=== PATIENT | female | born 1985 | race Caucasian/White ===

== ENCOUNTER 2017-08-03 17:53 | Emergency (ER) | payer BC ==
[2016-12-05 16:45] VITALS: Ht 160 cm; Wt 124.7 kg
[~2017-08-03] VITALS: Ht 160 cm; Wt 124.7 kg
[~2017-08-03 17:53] MED LIST: DIA5 PO; DOCU-202 PO; ESCI20TA38 PO; FAMO-67 PO; HYDR-4309 PO; IBUP600T22 PO; LACT1CAP6 PO; LEVO-85 PO; MECL25TA9 PO; METH-543 PO; ONDA4TAB PO; OXYC-854 PO; OXYC-865 PO; PER PO; PROM-110 PO; SIME250C PO; SUVO20TA; TRAZ-156 PO; TRIA10.8
--- NOTE | 2017-08-03 18:05 | ER Report ---
History and Physical Time Seen By MD: 18:05 Hx. of Stated Complaint: SORE THROAT, N/V/D FOR 2 DAYS. HPI/ROS CHIEF COMPLAINT: Nausea, vomiting, diarrhea HISTORY OF PRESENT ILLNESS: Is a 32-year-old female who presents to the emergency department for nausea, vomiting, diarrhea. The patient was seen at urgent care just prior to arrival had a negative influenza. They were concerned with her sore throat, abdominal pain and thought she would benefit from further evaluation in the emergency department. Patient states over the last couple days she's had some aches, chills, sore throat, nausea, vomiting, diarrhea and now having some epigastric pain she feels is related to the vomiting. She states her was diagnosed with influenza this week. Patient denies dysuria, no chest pain, shortness of breath or confusion. REVIEW OF SYSTEMS: Constitutional: As above. Eyes: No discharge. ENT: As above. Cardiovascular: No chest pain, no palpitations. Respiratory: No cough, no shortness of breath. Gastrointestinal: As above. Genitourinary: No hematuria. Musculoskeletal: No back pain. Skin: No rashes. Neurological: No headache. Allergies: Coded Allergies: metoclopramide (Verified Allergy, Severe, MENTAL STATUS CHANGES, 08/03/17) Penicillins (Verified Allergy, Unknown, 08/03/17) patient reported morphine (Verified Adverse Reaction, Mild, ITCHING, 08/03/17) Home Meds Active Scripts Dicyclomine Hcl (DICYCLOMINE HCL) 20 Mg Tablet, 5 MG PO QID Y for SPASMS, #15 TAB Prov:JUVENAL SUE [facility] 08/03/17 Promethazine Hcl (PROMETHAZINE HCL) 25 Mg Tablet, 25 MG PO Q8H Y for NAUSEA/ VOMITING, #12 TAB Prov:JUVENAL SUE [facility] 08/03/17 Ondansetron (ZOFRAN ODT) 4 Mg Tab.rapdis, 4 MG PO Q6H Y for NAUSEA/VOMITING, # 20 TAB.KAVITHA Prov:JUVENAL SUE [facility] 08/03/17 Reported Medications Escitalopram Oxalate (LEXAPRO) 20 Mg Tablet, 20 MG PO QDAY, TAB 12/20/16 Discontinued Reported Medications Triamcinolone Acetonide (Nasacort) 10.8 Ml [place] 06/04/17 Suvorexant (Belsomra) 20 Mg Tablet, QHS 06/04/17 Suvorexant (Belsomra) 20 Mg Tablet 06/04/17 Discontinued Scripts Ondansetron (ZOFRAN ODT) 4 Mg Tab.rapdis, 4 MG PO Q6H Y for NAUSEA/VOMITING, # 20 TAB.KAVITHA Prov:[facility] 06/04/17 Meclizine Hcl (MECLIZINE HCL) 25 Mg Tablet, 25 MG PO Q6H Y for DIZZINESS, #30 TAB Prov:[facility] 06/04/17 Levofloxacin 500 Mg Tab (LEVAQUIN 500 MG TAB) 500 Mg Tablet, 500 MG PO DAILY, # 10 TAB Prov:[facility] 06/04/17 Past Medical/Surgical History H and has a past medical and surgical history of umbilical hernia, left shoulder pain, back pain, wears glasses, , cholecystectomy, hernia repair. Reviewed Nurses Notes: Yes Hx Smoking: No Smoking Status: Never Smoker Hx Substance Use Disorder: No Hx Alcohol Use: No Constitutional Vital Sign - Last 24 Hours 08/03/17 08/03/17 08/03/17 08/03/17 17:57 17:59 17:59 18:23 Temp 97.6 Pulse 120 ??? Resp 18 B/P (MAP) 156/137 (143) 109/91 (97) 109/91 Pulse Ox 100 O2 Delivery Room Air 08/03/17 08/03/17 08/03/17 08/03/17 18:30 18:53 19:00 19:23 Pulse 96 B/P (MAP) 132/74 (93) 130/100 (110) Pulse Ox 96 100 08/03/17 08/03/17 08/03/17 08/03/17 19:30 19:35 20:21 20:35 Pulse 111 Resp 8 11 B/P (MAP) 104/68 (80) Pulse Ox 100 100 O2 Flow Rate 2.0 08/03/17 23:55 Pulse 85 Resp 16 B/P (MAP) 132/88 (103) Pulse Ox 95 O2 Delivery Room Air Physical Exam General Appearance: [The patient is alert, has no immediate need for airway protection and no signs of toxicity. Eyes: Pupils equal and round no pallor or injection. ENT, Mouth: Mucous membranes are dry, erythematous posterior oropharynx, tonsillar hypertrophy with exudate. Uvula midline, no edema. Anterior cervical chain lymphadenopathy. Respiratory: There are no retractions, lungs are clear to auscultation. Cardiovascular: Regular rate and rhythm, no murmurs, clicks or rubs. Gastrointestinal: Abdomen is round and soft, epigastric tenderness with palpation, no masses, bowel sounds normal. Neurological: Alert and oriented 4. Moving all activities. Following all commands. No focal neural deficits. Skin: Warm and dry, no rashes. Musculoskeletal: Neck is supple non tender. Extremities are nontender, non-swollen and have full range of motion. DIFFERENTIAL DIAGNOSIS: After history and physical exam differential diagnosis was considered for abdominal pain in a female including but not limited to ovarian cyst, pelvic inflammatory disease, ovarian torsion, urinary tract infection, and appendicitis, strep throat, influenza, gastroenteritis. Medical Decision Making Data Points Result Diagram: 08/03/17 1823 08/03/17 1823 Laboratory Hematology Test 08/03/17 17:55 08/03/17 18:23 08/03/17 20:25 Group A Streptococcus Screen Negative (NEGATIVE) Red Blood Count 5.43 M/uL (4.17-5.56) Mean Corpuscular Volume 88.1 fL (80.0-96.0) Mean Corpuscular Hemoglobin 29.7 pg (26.0-33.0) Mean Corpuscular Hemoglobin Concent 33.6 g/dL (32.0-36.0) Red Cell Distribution Width 13.1 % (11.5-14.5) Mean Platelet Volume 9.9 fL (7.2-11.1) Neutrophils (%) (Auto) 83.8 % (39.4-72.5) Lymphocytes (%) (Auto) 9.5 % (17.6-49.6) Monocytes (%) (Auto) 5.1 % (4.1-12.4) Eosinophils (%) (Auto) 1.0 % (0.4-6.7) Basophils (%) (Auto) 0.6 % (0.3-1.4) Nucleated RBC Relative Count (auto) 0.0 /100WBC Neutrophils # (Auto) 13.9 K/uL (2.0-7.4) Lymphocytes # (Auto) 1.6 K/uL (1.3-3.6) Monocytes # (Auto) 0.8 K/uL (0.3-1.0) Eosinophils # (Auto) 0.2 K/uL (0.0-0.5) Basophils # (Auto) 0.1 K/uL (0.0-0.1) Nucleated RBC Absolute Count (auto) 0.00 K/uL Peripheral Blood Smear Yes Y/N Sodium Level 137 mmol/L (137-145) Potassium Level 3.8 mmol/L (3.5-5.0) Chloride Level 104 mmol/L (98-107) Carbon Dioxide Level 20 mmol/L (22-31) Blood Urea Nitrogen 8 mg/dl (7-18) Creatinine 0.60 mg/dl (0.52-1.04) Glomerular Filtration Rate Calc > 60.0 Random Glucose 90 mg/dl (75-110) Calcium Level 9.0 mg/dl (8.4-10.2) Total Bilirubin 0.6 mg/dl (0.2-1.3) Aspartate Amino Transf (AST/SGOT) 21 U/L (0-35) Alanine Aminotransferase (ALT/SGPT) 32 U/L (0-56) Alkaline Phosphatase 91 U/L (0-126) Total Protein 7.4 gm/dl (6.3-8.2) Albumin 4.1 g/dl (3.5-5.0) Amylase Level 53 U/L (0-110) Lipase 40 U/L (23-300) Human Chorionic Gonadotropin, Qual Negative (NEGATIVE) Urine Color Yellow Urine Clarity Clear Urine pH 6.0 pH (4.8-9.5) Urine Specific [place] 1.024 Urine Protein Negative mg/dL (NEGATIVE) Urine Glucose (UA) Negative mg/dL (NEGATIVE) Urine Ketones 20 mg/dL (NEGATIVE) Urine Blood Negative (NEGATIVE) Urine Nitrite Negative (NEGATIVE) Urine Bilirubin Negative (NEGATIVE) Urine Urobilinogen Negative mg/dL (0.2-1.9) Urine Leukocyte Esterase Negative (NEGATIVE) Urine RBC None /HPF (0-2/HPF) Urine WBC <1 /HPF (0-5/HPF) Urine Squamous Epithelial Cells Many /LPF (</=FEW) Urine Bacteria Negative /HPF (NONE-FEW) Urine Mucus Few /HPF (NONE-FEW) Chemistry Test 08/03/17 17:55 08/03/17 18:23 08/03/17 20:25 Group A Streptococcus Screen Negative (NEGATIVE) White Blood Count 16.6 k/uL (4.5-11.0) Red Blood Count 5.43 M/uL (4.17-5.56) Hemoglobin 16.1 g/dL (12.0-16.0) Hematocrit 47.8 % (34.0-47.0) Mean Corpuscular Volume 88.1 fL (80.0-96.0) Mean Corpuscular Hemoglobin 29.7 pg (26.0-33.0) Mean Corpuscular Hemoglobin Concent 33.6 g/dL (32.0-36.0) Red Cell Distribution Width 13.1 % (11.5-14.5) Platelet Count 309 K/uL (150-450) Mean Platelet Volume 9.9 fL (7.2-11.1) Neutrophils (%) (Auto) 83.8 % (39.4-72.5) Lymphocytes (%) (Auto) 9.5 % (17.6-49.6) Monocytes (%) (Auto) 5.1 % (4.1-12.4) Eosinophils (%) (Auto) 1.0 % (0.4-6.7) Basophils (%) (Auto) 0.6 % (0.3-1.4) Nucleated RBC Relative Count (auto) 0.0 /100WBC Neutrophils # (Auto) 13.9 K/uL (2.0-7.4) Lymphocytes # (Auto) 1.6 K/uL (1.3-3.6) Monocytes # (Auto) 0.8 K/uL (0.3-1.0) Eosinophils # (Auto) 0.2 K/uL (0.0-0.5) Basophils # (Auto) 0.1 K/uL (0.0-0.1) Nucleated RBC Absolute Count (auto) 0.00 K/uL Peripheral Blood Smear Yes Y/N Glomerular Filtration Rate Calc > 60.0 Calcium Level 9.0 mg/dl (8.4-10.2) Total Bilirubin 0.6 mg/dl (0.2-1.3) Aspartate Amino Transf (AST/SGOT) 21 U/L (0-35) Alanine Aminotransferase (ALT/SGPT) 32 U/L (0-56) Alkaline Phosphatase 91 U/L (0-126) Total Protein 7.4 gm/dl (6.3-8.2) Albumin 4.1 g/dl (3.5-5.0) Amylase Level 53 U/L (0-110) Lipase 40 U/L (23-300) Human Chorionic Gonadotropin, Qual Negative (NEGATIVE) Urine Color Yellow Urine Clarity Clear Urine pH 6.0 pH (4.8-9.5) Urine Specific [place] 1.024 Urine Protein Negative mg/dL (NEGATIVE) Urine Glucose (UA) Negative mg/dL (NEGATIVE) Urine Ketones 20 mg/dL (NEGATIVE) Urine Blood Negative (NEGATIVE) Urine Nitrite Negative (NEGATIVE) Urine Bilirubin Negative (NEGATIVE) Urine Urobilinogen Negative mg/dL (0.2-1.9) Urine Leukocyte Esterase Negative (NEGATIVE) Urine RBC None /HPF (0-2/HPF) Urine WBC <1 /HPF (0-5/HPF) Urine Squamous Epithelial Cells Many /LPF (</=FEW) Urine Bacteria Negative /HPF (NONE-FEW) Urine Mucus Few /HPF (NONE-FEW) Urinalysis Test 08/03/17 20:25 Urine Color Yellow Urine Clarity Clear Urine pH 6.0 pH (4.8-9.5) Urine Specific [place] 1.024 Urine Protein Negative mg/dL (NEGATIVE) Urine Glucose (UA) Negative mg/dL (NEGATIVE) Urine Ketones 20 mg/dL (NEGATIVE) Urine Blood Negative (NEGATIVE) Urine Nitrite Negative (NEGATIVE) Urine Bilirubin Negative (NEGATIVE) Urine Urobilinogen Negative mg/dL (0.2-1.9) Urine Leukocyte Esterase Negative (NEGATIVE) Urine RBC None /HPF (0-2/HPF) Urine WBC <1 /HPF (0-5/HPF) Urine Squamous Epithelial Cells Many /LPF (</=FEW) Urine Bacteria Negative /HPF (NONE-FEW) Urine Mucus Few /HPF (NONE-FEW) Microbiology Microbiology Date/Time Source Procedure Growth Status 08/03/17 17:55 Throat Group A Streptococcus Screen (RAUL) - Preliminary NORMAL RESPIRATORY NORMA PRESENT, CUL... Resulted EKG/Imaging Imaging EXAMINATION: CT abdomen and pelvis with contrast COMPARISON: 12/04/2016 HISTORY: Severe abdominal pain. Prior hernia repair. PROCEDURE: Multiplanar contrast enhanced CT of the abdomen and pelvis with 75 mL intravenous Isovue 370. One of the following dose optimization techniques was utilized in the performance of this exam: Automated exposure control; adjustment of the mA and/or kV according to the patient's size; or use of an iterative reconstruction technique. Specific details can be referenced in the facility's radiology CT exam operational policy. FINDINGS: Visualized thorax: Negative. Liver: Negative. Gallbladder and biliary system: Cholecystectomy. No bile duct dilation. Spleen: Spleen size is normal. Pancreas: Negative. Adrenal glands: Negative. Kidneys and bladder: No renal mass or evidence of an obstructive uropathy. Urinary bladder is unremarkable. Vessels: Within normal limits. Bowel and mesentery: Stomach is within normal limits. No small bowel obstruction. Appendix is unremarkable. Minimal stool within the colon. No bowel or mesenteric inflammation. Pelvic organs: Intrauterine device is normally positioned. No adnexal mass. Lymph nodes: No adenopathy. Free air/free fluid: None. Abdominal wall and osseous structures: Ventral hernia repair with no evidence of recurrent hernia. L5 chronic bilateral pars defects. No spondylolisthesis. No acute osseous abnormality. IMPRESSION: 1. Ventral hernia repair with no evidence of recurrent hernia. 2. No findings of acute disease in the abdomen or pelvis. Report Dictated By: Christopher Desir MD at 08/03/2017 8:25 PM Report E-Signed By: Christopher Desir MD at 08/03/2017 8:34 PM [id number] ED Course/Re-evaluation Clinical Indication for ER IV: Hydration, IV Access ED Course The patient was admitted to room. A history of physical were obtained. Differential diagnoses were considered. IV was started. A CBC, CMP, lipase, amylase and UA were obtained. Lab studies showing the WBCs 16.6, with a left shift, negative strep screen. UA contaminated. 1 L lactated Ringer's bolus given 2. 4 mg IV Zofran 2, 25 g IV fentanyl, 12.5 mg Phenergan 2. Patient was having some increased abdominal pain at which time we elected to proceed with an abdomen and pelvis CT. No acute findings in the abdomen and pelvis CT, no disruption in the hernia repair. I did review the results with the patient's and her . The patient was prepped and ready for discharge by limits that the patient again she was sitting up at the bedside vomiting. I asked patient if she like to go home and try the nausea medications and try to sleep she said that she had rather stay here for little while with another IV and some nausea medicine. Subsequently another IV was started a liter of normal saline was given and 25 mg IV Benadryl. I did review his case with Dr. Dalal who will be taking over the patient's care. Decision to Disposition Date: Aug 04, 2017 Decision to Disposition Time: 00:01 Turned Over The care of the patient was turned over to Dr. Dalal. NADJA Arreola I authorize my typed signature that I authenticated this report. Depart Departure Latest Vital Signs Vital Signs Date Time Temp Pulse Resp B/P (MAP) Pulse Ox O2 Delivery O2 Flow Rate FiO2 08/03/17 23:55 85 16 132/88 (103) 95 Room Air 08/03/17 20:21 2.0 08/03/17 17:59 97.6 Impression: Primary Impression: Gastroenteritis Condition: Improved Disposition: HOME OR SELF-CARE Referrals: DERICK GORE DO (PCP) New Scripts Dicyclomine Hcl (DICYCLOMINE HCL) 20 Mg Tablet 5 MG PO QID Y for SPASMS, #15 TAB Prov: JUVENAL SUE [facility] 08/03/17 Promethazine Hcl (PROMETHAZINE HCL) 25 Mg Tablet 25 MG PO Q8H Y for NAUSEA/VOMITING, #12 TAB Prov: JUVENAL SUE [facility] 08/03/17 Ondansetron (ZOFRAN ODT) 4 Mg Tab.rapdis 4 MG PO Q6H Y for NAUSEA/VOMITING, #20 TAB.KAVITHA Prov: JUVENAL SUE [facility] 08/03/17 Patient Instructions: Abdominal Pain (ED), Gastroenteritis (ED) Additional Instructions: Try a clear liquid diet for the next 12-24 hours. Be sure to drink plenty of fluids. Get plenty of rest. Take his Zofran or Phenergan as needed for nausea and vomiting. You can try the bentyl as needed for abominal cramping. If no improvement in 5-7 days follow up with your primary care provider. May return to the ED for worsening symptoms. JUVENAL SUE [facility] Aug 03, 2017 18:05
[2017-08-03] MEDS ORDERED: LR(*) 1000 ML BAG 1,000 ML IV ONE ×2 (18:14→18:50)
[2017-08-03] MEDS ORDERED: ONDANSETRON 4 MG/2 ML VIAL IVP ONE ×2 (18:15→19:00)
[2017-08-03 18:35] LABS: PLATELET COUNT, AUTOMATED 309 K/uL (150-450)
[2017-08-03] MEDS ORDERED: PROMETHAZINE 25 MG/ML 1 ML AMP IVP ONE ×3 (19:20→22:25)
[2017-08-03] MEDS ORDERED: fentaNYL CITR 100 MCG/2 ML AMP IVP ONE (19:35)
--- NOTE | 2017-08-03 20:38 | RADIOLOGY IMAGING REPORT ---
FACILITY: [facility] [place] PATIENT NAME: Olya Hannah : 1985 MR: [id number] V: [id number] EXAM DATE: ORDERING PHYSICIAN: JUVENAL SUE TECHNOLOGIST: Location: [facility] [place] Patient: Olya Hannah : 1985 Visit/Account:[id number] Date of Sevice: 08/03/2017 EXAMINATION: CT abdomen and pelvis with contrast COMPARISON: 12/04/2016 HISTORY: Severe abdominal pain. Prior hernia repair. PROCEDURE: Multiplanar contrast enhanced CT of the abdomen and pelvis with 75 mL intravenous Isovue 3 70. One of the following dose optimization techniques was utilized in the performance of this exam: A utomated exposure control; adjustment of the mA and/or kV according to the patient's size; or use of an iterative reconstruction technique. Specific details can be referenced in the facility's radiolo gy CT exam operational policy. FINDINGS: Visualized thorax: Negative. Liver: Negative. Gallbladder and biliary system: Cholecystectomy. No bile duct dilation. Spleen: Spleen size is normal. Pancreas: Negative. Adrenal glands: Negative. Kidneys and bladder: No renal mass or evidence of an obstructive uropathy. Urinary bladder is unrema rkable. Vessels: Within normal limits. Bowel and mesentery: Stomach is within normal limits. No small bowel obstruction. Appendix is unrem arkable. Minimal stool within the colon. No bowel or mesenteric inflammation. Pelvic organs: Intrauterine device is normally positioned. No adnexal mass. Lymph nodes: No adenopathy. Free air/free fluid: None. Abdominal wall and osseous structures: Ventral hernia repair with no evidence of recurrent hernia. L5 chronic bilateral pars defects. No spondylolisthesis. No acute osseous abnormality. IMPRESSION: 1. Ventral hernia repair with no evidence of recurrent hernia. 2. No findings of acute disease in the abdomen or pelvis. Report Dictated By: Christopher Desir MD at 08/03/2017 8:25 PM Report E-Signed By: Christopher Desir MD at 08/03/2017 8:34 PM [id number]
[2017-08-03] MEDS ORDERED: PROM-110 PO (20:48)
[2017-08-03] MEDS ORDERED: ONDA4TAB PO (20:48)
[2017-08-03] MEDS ORDERED: DICY20TA70 PO (20:55)
[2017-08-03] MEDS ORDERED: ONDANSETRON 4 MG ODT TH SL ONE (21:00)
[2017-08-03] MEDS ORDERED: DICYCLOMINE HCL 10 MG CAP PO ONE (21:00)
[2017-08-03] MEDS ORDERED: PROMETHAZINE HCL 25 MG TAB TH 2 TAB/BOTTLE PO ONE (21:00)
[2017-08-03] MEDS ORDERED: diphenhydrAMINE 50 MG/ML VIAL IVP ONE (21:10)
[2017-08-03] MEDS ORDERED: NS(*) 0.9% 1000 ML BAG 1,000 ML IV ONE (21:10)
[2017-08-03 23:55] VITALS: BP 132/88
[2017-08-07] MEDS ORDERED: IPRA15SP7 NS (08:24)
== END 2017-08-04 00:04 | disposition home or self-care (01) ==
LOC: ER 18:11
DX: K52.9 Noninfective gastroenteritis and colitis, unspecified (principal)
CPT/HCPCS: 74177; 81001; 82150; 83690; 84703; 85025; 87081; 87880; 96361; 96374; 96375; 96376; 99284; J1200; J2405; J2550; J3010; J7030; J7050; J7120; Q9967; 82040; 82247; 82310; 82374; 82435; 82565; 82947; 84075; 84132; 84155; 84295; 84450; 84460; 84520

== ENCOUNTER 2017-11-19 14:06 | Emergency (ER) | payer BC ==
[2016-12-05 16:45] VITALS: Wt 124.7 kg
[~2017-11-19 14:06] MED LIST changes: +DICY20TA70 PO; +IPRA15SP7 NS
--- NOTE | 2017-11-19 14:18 | ER Report ---
History and Physical Time Seen By MD: 14:17 Hx. of Stated Complaint: Diarrhea started yesterday. Vomitting today. Pain in lower epigastric area HPI/ROS CHIEF COMPLAINT: abdominal pain and vomiting HISTORY OF PRESENT ILLNESS: This is a 32 year old female. She had abdominal pain starting yesterday. Associated with vomiting and some diarrhea. No fevers or chills. Not able to keep food or liquids down. Pain worsens with movement. Normal urination. No back pain or extremity pain. REVIEW OF SYSTEMS: Constitutional: No fever or chills. Eyes: No vision changes. ENT: No sore throat. No congestion. Cardiovascular: No chest pain. Respiratory: No shortness of breath. Gastrointestinal: As above. Genitourinary: As above. Musculoskeletal: No extremity pain. Skin: No rashes. Neurological: No numbness. No weakness. Allergies: Coded Allergies: metoclopramide (Verified Allergy, Severe, MENTAL STATUS CHANGES, 11/19/17) Penicillins (Verified Allergy, Unknown, 11/19/17) patient reported morphine (Verified Adverse Reaction, Mild, ITCHING, 11/19/17) Home Meds Active Scripts Hydrocodone Bit/Acetaminophen (HYDROCODON-ACETAMINOPHEN 5-325) 1 Each Tablet, 1 EACH PO Q4H Y for PAIN, #12 TAB 0 Refills Prov:SERGIO MILLER MD 11/19/17 Promethazine Hcl (PROMETHAZINE HCL) 25 Mg Tablet, 25 MG PO Q8H Y for NAUSEA/ VOMITING, #30 TAB 0 Refills Prov:SERGIO MILLER MD 11/19/17 Metronidazole (METRONIDAZOLE) 500 Mg Tablet, 500 MG PO TID, #30 TAB 0 Refills Prov:SERGIO MILLER MD 11/19/17 Ciprofloxacin Hcl (CIPROFLOXACIN HCL) 500 Mg Tablet, 500 MG PO Q12H, #20 TAB 0 Refills Prov:SERGIO MILLER MD 11/19/17 Ipratropium [place] 0.06% Ns (IPRATROPIUM BROMIDE 0.06% NS) 15 Ml [place], 2 SPRAY NS BID, #1 BOT 11 Refills Prov:PAVEL CHATTERJEE JR, MD 08/24/17 Reported Medications Escitalopram Oxalate (LEXAPRO) 20 Mg Tablet, 20 MG PO QDAY, TAB 12/20/16 Discontinued Scripts Dicyclomine Hcl (DICYCLOMINE HCL) 20 Mg Tablet, 5 MG PO QID Y for SPASMS, #15 TAB Prov:JUVENAL SUE [employer] ADMINISTRATOR-BC 08/03/17 Reviewed Nurses Notes: Yes Hx Smoking: No Smoking Status: Never Smoker Hx Substance Use Disorder: No Hx Alcohol Use: No Constitutional Vital Sign - Last 24 Hours 11/19/17 11/19/17 11/19/17 11/19/17 14:10 14:15 14:30 14:45 Temp 98.8 Pulse 135 133 126 122 Resp 16 B/P (MAP) 136/106 125/114 (118) Pulse Ox 97 98 94 92 O2 Delivery Room Air 11/19/17 11/19/17 11/19/17 11/19/17 15:15 15:30 15:32 15:45 Pulse 110 113 128 B/P (MAP) 123/80 (94) Pulse Ox 96 97 96 11/19/17 11/19/17 11/19/17 11/19/17 16:00 16:15 16:30 16:45 Pulse 117 112 112 106 B/P (MAP) 131/87 (102) 111/101 (104) Pulse Ox 96 97 98 98 11/19/17 11/19/17 11/19/17 11/19/17 17:00 17:15 17:30 17:45 Pulse 109 104 108 103 B/P (MAP) 131/79 (96) 112/76 (88) Pulse Ox 98 97 98 98 11/19/17 11/19/17 11/19/17 11/19/17 18:00 18:15 18:30 19:55 Pulse 104 104 112 B/P (MAP) 119/74 (89) 121/75 (90) 110/86 (94) Pulse Ox 97 97 98 11/19/17 11/19/17 11/19/17 11/19/17 20:00 20:30 20:45 21:00 Pulse 120 105 102 104 B/P (MAP) 114/100 (105) 133/85 (101) 112/79 (90) Pulse Ox 96 98 98 97 11/19/17 21:15 Pulse 99 Pulse Ox 97 Physical Exam General Appearance: The patient is alert. Acute distress due to pain. Eyes: Pupils are equal, round. No pallor, injection or icterus. ENT: Mucous membranes are moist. Normal oral mucosa. Posterior oropharynx is normal. Neck: Supple and non tender. Respiratory: Breathing easily and unlabored. Lungs are clear to auscultation. Cardiovascular: Regular rate and rhythm. No murmurs, gallops or rubs. Normal capillary refill. Gastrointestinal: abdomen is soft, but very tender in epigastric and right abdomen. Nondistended. Guarding, but no rebound. Normal active bowel sounds. No costovertebral angle tenderness with percussion. Neurological: Alert and oriented x3. No focal neurologic deficits. Skin: Warm and dry. DIFFERENTIAL DIAGNOSIS: After history and physical exam, differential diagnosis was considered for abdominal pain including but not limited to appendicitis, cholecystitis, gastritis and urinary tract infection. Medical Decision Making Data Points Result Diagram: 11/19/17 1420 11/19/17 1420 Laboratory Hematology Test 11/19/17 14:20 11/19/17 20:15 Red Blood Count 5.47 M/uL (4.17-5.56) Mean Corpuscular Volume 88.7 fL (80.0-96.0) Mean Corpuscular Hemoglobin 30.0 pg (26.0-33.0) Mean Corpuscular Hemoglobin Concent 33.8 g/dL (32.0-36.0) Red Cell Distribution Width 13.2 % (11.5-14.5) Mean Platelet Volume 9.3 fL (7.2-11.1) Neutrophils (%) (Auto) 86.9 % (39.4-72.5) Lymphocytes (%) (Auto) 7.2 % (17.6-49.6) Monocytes (%) (Auto) 4.4 % (4.1-12.4) Eosinophils (%) (Auto) 1.0 % (0.4-6.7) Basophils (%) (Auto) 0.5 % (0.3-1.4) Nucleated RBC Relative Count (auto) 0.2 /100WBC Neutrophils # (Auto) 14.1 K/uL (2.0-7.4) Lymphocytes # (Auto) 1.2 K/uL (1.3-3.6) Monocytes # (Auto) 0.7 K/uL (0.3-1.0) Eosinophils # (Auto) 0.2 K/uL (0.0-0.5) Basophils # (Auto) 0.1 K/uL (0.0-0.1) Nucleated RBC Absolute Count (auto) 0.03 K/uL Sodium Level 141 mmol/L (137-145) Potassium Level 4.0 mmol/L (3.5-5.0) Chloride Level 102 mmol/L (98-107) Carbon Dioxide Level 21 mmol/L (22-31) Blood Urea Nitrogen 7 mg/dl (7-18) Creatinine 0.70 mg/dl (0.52-1.04) Glomerular Filtration Rate Calc > 60.0 Random Glucose 100 mg/dl (75-110) Lactate 2.0 mmol/L (0.7-2.1) Calcium Level 9.7 mg/dl (8.4-10.2) Total Bilirubin 0.6 mg/dl (0.2-1.3) Aspartate Amino Transf (AST/SGOT) 22 U/L (0-35) Alanine Aminotransferase (ALT/SGPT) 26 U/L (0-56) Alkaline Phosphatase 117 U/L (0-126) C-Reactive Protein 1.9 mg/dl (<1.0) Total Protein 7.9 gm/dl (6.3-8.2) Albumin 4.4 g/dl (3.5-5.0) Amylase Level 61 U/L (0-110) Lipase 43 U/L (23-300) Human Chorionic Gonadotropin, Qual Negative (NEGATIVE) Urine Color Yellow Urine Clarity Clear Urine pH 6.0 pH (4.8-9.5) Urine Specific [place] 1.047 Urine Protein Negative mg/dL (NEGATIVE) Urine Glucose (UA) Negative mg/dL (NEGATIVE) Urine Ketones Negative mg/dL (NEGATIVE) Urine Blood Negative (NEGATIVE) Urine Nitrite Negative (NEGATIVE) Urine Bilirubin Negative (NEGATIVE) Urine Urobilinogen Negative mg/dL (0.2-1.9) Urine Leukocyte Esterase Negative (NEGATIVE) Urine RBC None /HPF (0-2/HPF) Urine WBC <1 /HPF (0-5/HPF) Urine Squamous Epithelial Cells Few /LPF (</=FEW) Urine Bacteria Negative /HPF (NONE-FEW) Urine Hyaline Casts Few /LPF (NONE-FEW) Urine Mucus None /HPF (NONE-FEW) Chemistry Test 11/19/17 14:20 11/19/17 20:15 White Blood Count 16.2 k/uL (4.5-11.0) Red Blood Count 5.47 M/uL (4.17-5.56) Hemoglobin 16.4 g/dL (12.0-16.0) Hematocrit 48.5 % (34.0-47.0) Mean Corpuscular Volume 88.7 fL (80.0-96.0) Mean Corpuscular Hemoglobin 30.0 pg (26.0-33.0) Mean Corpuscular Hemoglobin Concent 33.8 g/dL (32.0-36.0) Red Cell Distribution Width 13.2 % (11.5-14.5) Platelet Count 380 K/uL (150-450) Mean Platelet Volume 9.3 fL (7.2-11.1) Neutrophils (%) (Auto) 86.9 % (39.4-72.5) Lymphocytes (%) (Auto) 7.2 % (17.6-49.6) Monocytes (%) (Auto) 4.4 % (4.1-12.4) Eosinophils (%) (Auto) 1.0 % (0.4-6.7) Basophils (%) (Auto) 0.5 % (0.3-1.4) Nucleated RBC Relative Count (auto) 0.2 /100WBC Neutrophils # (Auto) 14.1 K/uL (2.0-7.4) Lymphocytes # (Auto) 1.2 K/uL (1.3-3.6) Monocytes # (Auto) 0.7 K/uL (0.3-1.0) Eosinophils # (Auto) 0.2 K/uL (0.0-0.5) Basophils # (Auto) 0.1 K/uL (0.0-0.1) Nucleated RBC Absolute Count (auto) 0.03 K/uL Glomerular Filtration Rate Calc > 60.0 Lactate 2.0 mmol/L (0.7-2.1) Calcium Level 9.7 mg/dl (8.4-10.2) Total Bilirubin 0.6 mg/dl (0.2-1.3) Aspartate Amino Transf (AST/SGOT) 22 U/L (0-35) Alanine Aminotransferase (ALT/SGPT) 26 U/L (0-56) Alkaline Phosphatase 117 U/L (0-126) C-Reactive Protein 1.9 mg/dl (<1.0) Total Protein 7.9 gm/dl (6.3-8.2) Albumin 4.4 g/dl (3.5-5.0) Amylase Level 61 U/L (0-110) Lipase 43 U/L (23-300) Human Chorionic Gonadotropin, Qual Negative (NEGATIVE) Urine Color Yellow Urine Clarity Clear Urine pH 6.0 pH (4.8-9.5) Urine Specific [place] 1.047 Urine Protein Negative mg/dL (NEGATIVE) Urine Glucose (UA) Negative mg/dL (NEGATIVE) Urine Ketones Negative mg/dL (NEGATIVE) Urine Blood Negative (NEGATIVE) Urine Nitrite Negative (NEGATIVE) Urine Bilirubin Negative (NEGATIVE) Urine Urobilinogen Negative mg/dL (0.2-1.9) Urine Leukocyte Esterase Negative (NEGATIVE) Urine RBC None /HPF (0-2/HPF) Urine WBC <1 /HPF (0-5/HPF) Urine Squamous Epithelial Cells Few /LPF (</=FEW) Urine Bacteria Negative /HPF (NONE-FEW) Urine Hyaline Casts Few /LPF (NONE-FEW) Urine Mucus None /HPF (NONE-FEW) Urinalysis Test 11/19/17 20:15 Urine Color Yellow Urine Clarity Clear Urine pH 6.0 pH (4.8-9.5) Urine Specific [place] 1.047 Urine Protein Negative mg/dL (NEGATIVE) Urine Glucose (UA) Negative mg/dL (NEGATIVE) Urine Ketones Negative mg/dL (NEGATIVE) Urine Blood Negative (NEGATIVE) Urine Nitrite Negative (NEGATIVE) Urine Bilirubin Negative (NEGATIVE) Urine Urobilinogen Negative mg/dL (0.2-1.9) Urine Leukocyte Esterase Negative (NEGATIVE) Urine RBC None /HPF (0-2/HPF) Urine WBC <1 /HPF (0-5/HPF) Urine Squamous Epithelial Cells Few /LPF (</=FEW) Urine Bacteria Negative /HPF (NONE-FEW) Urine Hyaline Casts Few /LPF (NONE-FEW) Urine Mucus None /HPF (NONE-FEW) EKG/Imaging Imaging ABDOMEN/PELVIS WITH CONTRAST HISTORY: epigastric pain, vomiting, diarrhea TECHNIQUE: Following administration of IV contrast contiguous axial images acquired through the abdomen/pelvis. Coronal and sagittal reformatting also performed. Dose Lowering Technique One of the following dose optimization techniques was utilized in the performance of this exam: Automated exposure control; adjustment of the mA and/ or kV according to the patient's size; or use of an iterative reconstruction technique. Specific details can be referenced in the facility's radiology CT exam operational policy. CONTRAST: 75 mL Isovue-370 COMPARISON: August 03, 2017 FINDINGS: Visualized lung bases: Negative. Hepatobiliary: Postsurgical changes from a cholecystectomy Spleen: Negative. Adrenals: Negative. Pancreas: Negative. Kidneys ureters or bladder: Tiny cortical hypodensity upper pole the right kidney likely representing a cyst although is too small to characterize by CT although remain stable Genitalia: IUD appears to been good position within the uterus 2.9 cm right ovarian hypodensity likely a cyst GI: There is thickening of the wall of the right-sided the colon suggesting colitis. The appendix is not appear inflamed although there appears to been appendicolith at its origin Vessels/spaces/nodes: Negative. 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 IMPRESSION: There is thickening of the wall of the right-sided the colon suggesting colitis. There is an appendicolith at the appendiceal origin although no surrounding inflammatory change identified Additional chronic findings as described Report Dictated By: Miroslava Rose MD at 11/19/2017 3:30 PM ED Course/Re-evaluation Clinical Indication for ER IV: Hydration, IV Access ED Course After the initial evaluation, the patient had Dilaudid and Zofran for pain and nausea. Protonix was given as well. Labs showed an elevated white blood cell count. Imaging shows thickening of right colon consistent with colitis. Started on Levaquin 750mg IV and Metronidazole 500mg IV. Dilaudid caused itching and patient had Benadryl to help with this. Home with Levaquin, Metronidazole, Lortab and Phenergan. Decision to Disposition Date: Nov 19, 2017 Decision to Disposition Time: 17:04 Depart Departure Latest Vital Signs Vital Signs Date Time Temp Pulse Resp B/P (MAP) Pulse Ox O2 Delivery O2 Flow Rate FiO2 11/19/17 21:15 99 97 11/19/17 21:00 112/79 (90) 11/19/17 14:10 98.8 16 Room Air Impression: Primary Impression: Colitis Condition: Improved Disposition: HOME OR SELF-CARE Referrals: DERICK GORE DO (PCP) New Scripts Hydrocodone Bit/Acetaminophen (HYDROCODON-ACETAMINOPHEN 5-325) 1 Each Tablet 1 EACH PO Q4H Y for PAIN, #12 TAB 0 Refills Prov: SERGIO MILLER MD 11/19/17 Promethazine Hcl (PROMETHAZINE HCL) 25 Mg Tablet 25 MG PO Q8H Y for NAUSEA/VOMITING, #30 TAB 0 Refills Prov: SERGIO MILLER MD 11/19/17 Metronidazole (METRONIDAZOLE) 500 Mg Tablet 500 MG PO TID, #30 TAB 0 Refills Prov: SERGIO MILLER MD 11/19/17 Ciprofloxacin Hcl (CIPROFLOXACIN HCL) 500 Mg Tablet 500 MG PO Q12H, #20 TAB 0 Refills Prov: SERGIO MILLER MD 11/19/17 Patient Instructions: Colitis (ED) Additional Instructions: You have an infection of the colon and will need to take antibiotics. Take Cipro 500mg twice a day for 10 days. Take Metronidazole 500mg three times a day for 10 days. For nausea, take Phenergan 25mg tablets, one every 8 hours as needed. For pain, take Lortab 5/325, one every 4 hours as needed for pain. Increase fluid intake. Return to the ER for severe vomiting or pain. SERGIO MILLER MD Nov 19, 2017 14:18
[2017-11-19] MEDS ORDERED: NS(*) 0.9% 1000 ML BAG 1,000 ML IV ONE (14:22)
[2017-11-19] MEDS ORDERED: PANTOPRAZOLE SOD 40 MG IV VIAL IVP ONE (14:25)
[2017-11-19] MEDS ORDERED: ONDANSETRON 4 MG/2 ML VIAL IVP ONE ×2 (14:25→19:25)
[2017-11-19] MEDS ORDERED: HYDROmorphone* 1 MG/ML 1 MG/ML ML IVP ONE ×2 (14:25→17:35)
[2017-11-19 14:36] LABS: PLATELET COUNT, AUTOMATED 380 K/uL (150-450)
[2017-11-19] MEDS ORDERED: IOPAMIDOL 76% 75 ML INFUS BTL 75 ML ONE (14:39)
[2017-11-19] MEDS ORDERED: diphenhydrAMINE 50 MG/ML VIAL IVP ONE (15:10)
--- NOTE | 2017-11-19 15:41 | RADIOLOGY IMAGING REPORT ---
FACILITY: [facility] - [place] PATIENT NAME: Olya Hannah : 1985 MR: [id number] V: [id number] EXAM DATE: ORDERING PHYSICIAN: SERGIO MILLER TECHNOLOGIST: Location: [facility] [place] Patient: Olya Hannah : 1985 Visit/Account:[id number] Date of Sevice: 11/19/2017 ABDOMEN/PELVIS WITH CONTRAST HISTORY: epigastric pain, vomiting, diarrhea TECHNIQUE: Following administration of IV contrast contiguous axial images acquired through the abdom en/pelvis. Coronal and sagittal reformatting also performed. Dose Lowering Technique One of the following dose optimization techniques was utilized in the performance of this exam: Autom ated exposure control; adjustment of the mA and/or kV according to the patient's size; or use of an i terative reconstruction technique. Specific details can be referenced in the facility's radiology C T exam operational policy. CONTRAST: 75 mL Isovue-370 COMPARISON: August 03, 2017 FINDINGS: Visualized lung bases: Negative. Hepatobiliary: Postsurgical changes from a cholecystectomy Spleen: Negative. Adrenals: Negative. Pancreas: Negative. Kidneys ureters or bladder: Tiny cortical hypodensity upper pole the right kidney likely representing a cyst although is too small to characterize by CT although remain stable Genitalia: IUD appears to been good position within the uterus 2.9 cm right ovarian hypodensity like ly a cyst GI: There is thickening of the wall of the right-sided the colon suggesting colitis. The appendix i s not appear inflamed although there appears to been appendicolith at its origin Vessels/spaces/nodes: Negative. 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 IMPRESSION: There is thickening of the wall of the right-sided the colon suggesting colitis. There is an appendicolith at the appendiceal origin although no surrounding inflammatory change ident ified Additional chronic findings as described Report Dictated By: Miroslava Rose MD at 11/19/2017 3:30 PM Report E-Signed By: Miroslava Rose MD at 11/19/2017 3:37 PM WSN:[email or web address]
[2017-11-19] MEDS ORDERED: PROMETHAZINE 25 MG/ML 1 ML AMP IVP ONE ×2 (15:55→19:25)
[2017-11-19] MEDS ORDERED: LEVOFLOXACIN/D5W 750 MG/150 ML 150 ML IVPB ONE (16:00)
[2017-11-19] MEDS ORDERED: metroNIDAZOLE* 500MG/100ML BAG 100 ML IVPB ONE (16:00)
[2017-11-19] MEDS ORDERED: CIPR-214 PO (17:08)
[2017-11-19] MEDS ORDERED: METR-160 PO (17:08)
[2017-11-19] MEDS ORDERED: LOR5/325 PO (17:08)
[2017-11-19] MEDS ORDERED: PROM-110 PO (17:08)
[2017-11-19] MEDS ORDERED: KETOROLAC 30 MG/ML VIAL IVP ONE (19:25)
[2017-11-19] MEDS ORDERED: LR(*) 1000 ML BAG 1,000 ML IV ONE (19:25)
[2017-11-19] MEDS ORDERED: methylPREDNIS SUCC 125 MG/2ML IVP ONE (19:45)
[2017-11-19 21:00] VITALS: BP 112/79
[2017-11-19] MEDS ORDERED: ACET/HYDROC 5/325MG TH ER ONLY 2 TAB/BOTTLE PO ONE ×2 (21:30)
== END 2017-11-19 21:41 | disposition home or self-care (01) ==
LOC: ER 14:07
DX: K52.9 Noninfective gastroenteritis and colitis, unspecified (principal)
CPT/HCPCS: 74177; 81001; 82150; 83605; 83690; 84703; 85025; 86140; 96361; 96365; 96366; 96367; 96375; 96376; 99285; C9113; J1170; J1200; J1885; J1956; J2405; J2550; J2930; J3490; J7030; J7120; Q9967; 82040; 82247; 82310; 82374; 82435; 82565; 82947; 84075; 84132; 84155; 84295; 84450; 84460; 84520

== ENCOUNTER 2017-11-22 17:14 | Emergency (ER) | payer BC ==
[2016-12-05 16:45] VITALS: Wt 124.7 kg
[~2017-11-22 17:14] MED LIST changes: +CIPR-214 PO; +LOR5/325 PO; +METR-160 PO
[2017-11-22] MEDS ORDERED: NS(*) 0.9% 1000 ML BAG 1,000 ML IV ONE ×2 (17:30→18:50)
[2017-11-22] MEDS ORDERED: PROMETHAZINE 25 MG/ML 1 ML AMP IVP ONE ×2 (17:30→18:50)
--- NOTE | 2017-11-22 17:41 | ER Report ---
History and Physical Time Seen By MD: 17:20 Hx. of Stated Complaint: PT REPORTS V/N/D, POSSIBLE DEHYDRATION (NAMITA FREED DO) HPI/ROS CHIEF COMPLAINT: n/v/d HISTORY OF PRESENT ILLNESS: PT started Sunday with N/v/d and abdominal pain on right side. Pt came to ED on Sunday and had blood work, cat scan and fluids. Pt was d/c to home. pt states that she never got better and today the vomiting and diarrhea was worse. diarrhea 5 times today and vomiting 3 times. Sent home with script for phenergan but states she vomited it up at home. went to see pcp Dr. Varma and had cbc and cmp in office which did not show anything acute however she appeared dehydrated so he sent her to emergency room. PT was given zofran in her pcp office but states she still feels nauseated. no fevers. REVIEW OF SYSTEMS: Constitutional: No fever, no chills. Eyes: No discharge. ENT: No sore throat. Cardiovascular: No chest pain, no palpitations. Respiratory: No cough, no shortness of breath. Gastrointestinal: + abdominal pain, +nausea, + diarrhea, + vomiting. Genitourinary: No hematuria. Musculoskeletal: No back pain. Skin: No rashes. Neurological: No headache. (NAMITA FREED DO) Allergies: Coded Allergies: metoclopramide (Verified Allergy, Severe, MENTAL STATUS CHANGES, 11/22/17) Penicillins (Verified Allergy, Unknown, 11/22/17) patient reported morphine (Verified Adverse Reaction, Mild, ITCHING, 11/22/17) Home Meds Active Scripts Omeprazole (OMEPRAZOLE) 20 Mg Capsule.dr, 1 CAP PO QDAY, #30 CAP 0 Refills Prov:SERGIO ENGLISH MD 11/22/17 Hydrocodone Bit/Acetaminophen (HYDROCODON-ACETAMINOPHEN 5-325) 1 Each Tablet, 1 EACH PO Q4H Y for PAIN, #12 TAB 0 Refills Prov:SERGIO ENGLISH MD 11/19/17 Promethazine Hcl (PROMETHAZINE HCL) 25 Mg Tablet, 25 MG PO Q8H Y for NAUSEA/ VOMITING, #30 TAB 0 Refills Prov:SERGIO ENGLISH MD 11/19/17 Metronidazole (METRONIDAZOLE) 500 Mg Tablet, 500 MG PO TID, #30 TAB 0 Refills Prov:SERGIO ENGLISH MD 11/19/17 Ciprofloxacin Hcl (CIPROFLOXACIN HCL) 500 Mg Tablet, 500 MG PO Q12H, #20 TAB 0 Refills Prov:SERGIO ENGLISH MD 11/19/17 Ipratropium [place] 0.06% Ns (IPRATROPIUM BROMIDE 0.06% NS) 15 Ml [place], 2 SPRAY NS BID, #1 BOT 11 Refills Prov:SKIP CHATTERJEE JR, MD 08/24/17 Reported Medications Escitalopram Oxalate (LEXAPRO) 20 Mg Tablet, 20 MG PO QDAY, TAB 12/20/16 Discontinued Scripts Dicyclomine Hcl (DICYCLOMINE HCL) 20 Mg Tablet, 5 MG PO QID Y for SPASMS, #15 TAB Prov:JUVENAL SUE INTERTYPE OPERATOR- 08/03/17 Past Medical/Surgical History Pmhx: colitis Pshx: , umbilical hernia repair (LAURORA,NAMITA V DO) Hx Smoking: No Smoking Status: Never Smoker Hx Substance Use Disorder: No Hx Alcohol Use: No (LAURORA,NAMITA V DO) Constitutional Vital Sign - Last 24 Hours 11/22/17 11/22/17 11/22/17 11/22/17 17:20 17:20 17:29 17:43 Temp 98.4 Pulse 97 96 Resp 16 B/P (MAP) 142/104 142/104 (117) Pulse Ox 97 94 O2 Delivery Room Air O2 Flow Rate 2.0 11/22/17 11/22/17 11/22/17 11/22/17 17:44 17:59 18:00 18:30 Pulse 88 86 B/P (MAP) 132/95 (107) 122/95 (104) Pulse Ox 96 98 11/22/17 11/22/17 19:15 19:45 Pulse 88 86 Resp 14 14 B/P (MAP) 127/94 (105) Pulse Ox 92 98 O2 Delivery Room Air Room Air (SERGIO ENGLISH MD) Physical Exam General Appearance: The patient is alert, has no immediate need for airway protection and no signs of toxicity. Eyes: Pupils equal and round no pallor or injection, EOMI ENT: no pharyngeal erythema or exudates, Mucous membranes are dry Respiratory: There are no retractions, lungs are clear to auscultation. Cardiovascular: Regular rate and rhythm. pulses are equal and symmetrical Gastrointestinal: Abdomen is soft with right sided tenderness, no masses, bowel sounds normal, no guarding, no rigidity or rebound Neurological: Cranial nerves II-XII grossly intact, no sensory or motor loss Skin: Warm and dry, no rashes. Musculoskeletal: Neck is supple non tender, no vertebral tenderness Extremities are nontender, non swollen and have full range of motion. DIFFERENTIAL DIAGNOSIS: After history and physical exam differential diagnosis was considered for clinical dehydration, worsening colitis (LAURORA,NAMITA V DO) Medical Decision Making Data Points Laboratory Hematology Test 11/22/17 19:08 Urine Color Yellow Urine Clarity Slightly-cloudy Urine pH 7.0 pH (4.8-9.5) Urine Specific [place] 1.025 Urine Protein Negative mg/dL (NEGATIVE) Urine Glucose (UA) Negative mg/dL (NEGATIVE) Urine Ketones Trace mg/dL (NEGATIVE) Urine Blood Small (NEGATIVE) Urine Nitrite Negative (NEGATIVE) Urine Bilirubin Negative (NEGATIVE) Urine Urobilinogen Negative mg/dL (0.2-1.9) Urine Leukocyte Esterase Negative (NEGATIVE) Urine RBC 4 /HPF (0-2/HPF) Urine WBC 1 /HPF (0-5/HPF) Urine Squamous Epithelial Cells Many /LPF (</=FEW) Urine Bacteria Few /HPF (NONE-FEW) Urine Mucus Few /HPF (NONE-FEW) Chemistry Test 11/22/17 19:08 Urine Color Yellow Urine Clarity Slightly-cloudy Urine pH 7.0 pH (4.8-9.5) Urine Specific [place] 1.025 Urine Protein Negative mg/dL (NEGATIVE) Urine Glucose (UA) Negative mg/dL (NEGATIVE) Urine Ketones Trace mg/dL (NEGATIVE) Urine Blood Small (NEGATIVE) Urine Nitrite Negative (NEGATIVE) Urine Bilirubin Negative (NEGATIVE) Urine Urobilinogen Negative mg/dL (0.2-1.9) Urine Leukocyte Esterase Negative (NEGATIVE) Urine RBC 4 /HPF (0-2/HPF) Urine WBC 1 /HPF (0-5/HPF) Urine Squamous Epithelial Cells Many /LPF (</=FEW) Urine Bacteria Few /HPF (NONE-FEW) Urine Mucus Few /HPF (NONE-FEW) Urinalysis Test 11/22/17 19:08 Urine Color Yellow Urine Clarity Slightly-cloudy Urine pH 7.0 pH (4.8-9.5) Urine Specific [place] 1.025 Urine Protein Negative mg/dL (NEGATIVE) Urine Glucose (UA) Negative mg/dL (NEGATIVE) Urine Ketones Trace mg/dL (NEGATIVE) Urine Blood Small (NEGATIVE) Urine Nitrite Negative (NEGATIVE) Urine Bilirubin Negative (NEGATIVE) Urine Urobilinogen Negative mg/dL (0.2-1.9) Urine Leukocyte Esterase Negative (NEGATIVE) Urine RBC 4 /HPF (0-2/HPF) Urine WBC 1 /HPF (0-5/HPF) Urine Squamous Epithelial Cells Many /LPF (</=FEW) Urine Bacteria Few /HPF (NONE-FEW) Urine Mucus Few /HPF (NONE-FEW) (SERGIO ENGLISH MD) EKG/Imaging Imaging EXAMINATION: CT abdomen and pelvis with IV contrast HISTORY: Right abdominal pain. Nausea, vomiting, diarrhea. TECHNIQUE: Axial CT images of the abdomen and pelvis were obtained with IV contrast, with coronal and sagittal 2D reconstructed images. One of the following dose optimization techniques was utilized in the performance of this exam: Automated exposure control; adjustment of the mA and/ or kV according to the patient's size; or use of an iterative reconstruction technique. Specific details can be referenced in the facility's radiology CT exam operational policy. Contrast: 75 mL of IV Isovue-370. COMPARISON: 11/19/2017. FINDINGS: Liver: Negative. Gallbladder and bile ducts: Cholecystectomy. No bile duct dilatation. Spleen: Negative. Pancreas: Negative. Adrenal glands: Negative. Kidneys: Negative. No hydronephrosis or urinary calculi. Bowel and peritoneum: The small bowel and colon are normal in caliber, without evidence of obstruction or any focal inflammatory process. Previously noted wall thickening along the right colon is no longer appreciated. Normal appendix in the right lower quadrant. Pelvic structures: There is a 3.4 cm cyst in the right adnexa, grossly stable from the prior exam. IUD in place along the central uterus. Lymph node assessment: Negative. Vessels: Negative. Musculoskeletal: No acute osseous findings. Chronic bilateral L5 spondylolysis , without spondylolisthesis. Body wall: Stable surgical changes of ventral hernia repair along the lower midline abdominal wall. Lung bases: Negative. IMPRESSION: 1. 3.4 cm right adnexal cyst. 2. No other acute intra-abdominal findings. 3. The small bowel and colon are unremarkable by CT, including the appendix. 4. IUD in place along the central uterus. 5. Cholecystectomy. Report Dictated By: Skip Chatterjee MD at 11/22/2017 6:33 PM (SERGIO ENGLISH MD) ED Course/Re-evaluation Clinical Indication for ER IV: Hydration, IV Access ED Course Labs done prior to arrival at Dr. Castillo office: wbc 11.2, hb/hct 16.1/48.5 plt 369 sodium 135 potassium 3.2 co2 21 cl 104 glu 96, ca 8.7 bun 10 cr 0.9 alt 26 ast 30 alkphos 63 tbili 0.5 alb 3.8 total protien 6.9 WIll start with fluids. 11/22/2017 5:51:47 pm S[address] out to Dr. English who is familiar with patient from 11/19. (NAMITA FREED DO) Clinical Indication for ER IV: Hydration, IV Access ED Course Discussed this patient with Dr. Freed on sign out at shift change today and assumed care. CT scan has returned and is now normal other than a right adnexal cyst. Labs from Dr. Varma's office are improved as well when compared to previous visit. She is still having pain and feels nauseated, but no vomiting and no diarrhea since she has been here. Will provide another dose of phenergan and another liter of normal saline. Percocet for pain and oral potassium replacement for her slightly low potassium of 3.2. Urinalysis with questionable changes, though no distinct sign of UTI. Culture of urine ordered. Protonix and GI cocktail given. Home with continuation of her medications prescribed on Sunday. Will add in a prescription for Omeprazole as well. Decision to Disposition Date: November 22, 2017 Decision to Disposition Time: 19:46 (SERGIO ENGLISH MD) Depart Departure Latest Vital Signs Vital Signs Date Time Temp Pulse Resp B/P (MAP) Pulse Ox O2 Delivery O2 Flow Rate FiO2 11/22/17 19:45 86 14 127/94 (105) 98 Room Air 11/22/17 17:43 2.0 11/22/17 17:20 98.4 (SERGIO ENGLISH MD) Impression: Primary Impression: Abdominal pain Condition: Improved Disposition: HOME OR SELF-CARE Referrals: DERICK VARMA DO (PCP) New Scripts Omeprazole (OMEPRAZOLE) 20 Mg Capsule. 1 CAP PO QDAY, #30 CAP 0 Refills Prov: SERGIO ENGLISH MD 11/22/17 Patient Instructions: Colitis (ED) Additional Instructions: Overall, your labs and imaging results have improved from Sunday. Your potassium is a little low and we would like to have you take a potassium supplement until you see Dr. Varma in followup. Please make an appointment with Dr. Varma for next week. Keep taking your antibiotics prescribed on Sunday. Keep taking your anti-nausea medications. You can take Tums or Maalox for heartburn. You can start the anti-acid medicine Omeprazole 20mg once a day to help with acid reflux symptoms. Problem Qualifiers Primary Impression: Abdominal pain Abdominal location: right lower quadrant Qualified Codes: R10.31 - Right lower quadrant pain NAMITA FREED DO November 22, 2017 17:41 SERGIO ENGLISH MD November 22, 2017 17:59
[2017-11-22] MEDS ORDERED: IOPAMIDOL 76% 75 ML INFUS BTL 75 ML ONE (18:15)
--- NOTE | 2017-11-22 18:41 | RADIOLOGY IMAGING REPORT ---
FACILITY: [facility] - [place] PATIENT NAME: Olya Hannah : 1985 MR: [id number] V: [id number] EXAM DATE: ORDERING PHYSICIAN: SERGIO MILLER TECHNOLOGIST: Location: [facility] - [place] Patient: Olya Hannah : 1985 Visit/Account:[id number] Date of Sevice: 11/22/2017 EXAMINATION: CT abdomen and pelvis with IV contrast HISTORY: Right abdominal pain. Nausea, vomiting, diarrhea. TECHNIQUE: Axial CT images of the abdomen and pelvis were obtained with IV contrast, with coronal a nd sagittal 2D reconstructed images. One of the following dose optimization techniques was utilized in the performance of this exam: Autom ated exposure control; adjustment of the mA and/or kV according to the patient's size; or use of an i terative reconstruction technique. Specific details can be referenced in the facility's radiology C T exam operational policy. Contrast: 75 mL of IV Isovue-370. COMPARISON: 11/19/2017. FINDINGS: Liver: Negative. Gallbladder and bile ducts: Cholecystectomy. No bile duct dilatation. Spleen: Negative. Pancreas: Negative. Adrenal glands: Negative. Kidneys: Negative. No hydronephrosis or urinary calculi. Bowel and peritoneum: The small bowel and colon are normal in caliber, without evidence of obstructi on or any focal inflammatory process. Previously noted wall thickening along the right colon is no lo nger appreciated. Normal appendix in the right lower quadrant. Pelvic structures: There is a 3.4 cm cyst in the right adnexa, grossly stable from the prior exam . IUD in place along the central uterus. Lymph node assessment: Negative. Vessels: Negative. Musculoskeletal: No acute osseous findings. Chronic bilateral L5 spondylolysis, without spondylolis thesis. Body wall: Stable surgical changes of ventral hernia repair along the lower midline abdominal wall. Lung bases: Negative. IMPRESSION: 1. 3.4 cm right adnexal cyst. 2. No other acute intra-abdominal findings. 3. The small bowel and colon are unremarkable by CT, including the appendix. 4. IUD in place along the central uterus. 5. Cholecystectomy. Report Dictated By: Skip Peñaloza MD at 11/22/2017 6:33 PM Report E-Signed By: Skip Peñaloza MD at 11/22/2017 6:38 PM WSN:[id number]
[2017-11-22] MEDS ORDERED: diphenhydrAMINE 50 MG/ML VIAL IVP ONE (18:50)
[2017-11-22] MEDS ORDERED: fentaNYL CITR 100 MCG/2 ML AMP IVP ONE (18:50)
[2017-11-22] MEDS ORDERED: KCL (*) 20 MEQ/100 ML PREMIX 100 ML IV ONE (19:00)
[2017-11-22] MEDS ORDERED: POTASSIUM CHL 20 MEQ TABCR PO ONE (19:00)
[2017-11-22 19:45] VITALS: BP 127/94
[2017-11-22] MEDS ORDERED: LIDOCAINE 2% VISC SLN 15ML UDC PO ONE (19:45)
[2017-11-22] MEDS ORDERED: MAG HYD/AL HYD/SIMETH 30ML UDC PO ONE (19:45)
[2017-11-22] MEDS ORDERED: PANTOPRAZOLE SOD 20 MG TABEC PO ONE (19:45)
[2017-11-22] MEDS ORDERED: OMEP-125 PO (19:51)
== END 2017-11-22 20:09 | disposition home or self-care (01) ==
LOC: ER 17:23
DX: R10.31 Right lower quadrant pain (principal)
CPT/HCPCS: 81001; 87088; 96361; 96374; 96375; 96376; 99284; J1200; J2550; J3010; J7030; Q9967; 74177

== ENCOUNTER 2017-12-22 08:24 | Emergency (ER) | payer BC ==
[2016-12-05 16:45] VITALS: Wt 131.5 kg
[~2017-12-22 08:24] MED LIST changes: +OMEP-125 PO
--- NOTE | 2017-12-22 08:30 | ER Report ---
History and Physical Time Seen By MD: 08:30 HPI/ROS CHIEF COMPLAINT: Hematemesis HISTORY OF PRESENT ILLNESS: Patient is a 32-year-old female here with complaints of hematemesis setting of ulcerative colitis. Patient reports several episodes of emesis initially with streaking red blood followed by more uniform bleeding. Patient is currently being treated with Lexapro but is not on other maintenance medications for her UC. Patient denies fevers, chills, chest pain, shortness of breath. She is nauseated but hemodynamically stable. REVIEW OF SYSTEMS: Constitutional: No fever, no chills. Eyes: No discharge. ENT: No sore throat. Cardiovascular: No chest pain, no palpitations. Respiratory: No cough, no shortness of breath. Gastrointestinal: No abdominal pain,+ nausea and vomiting. Genitourinary: No hematuria. Musculoskeletal: No back pain. Skin: No rashes. Neurological: No headache. Allergies: Coded Allergies: metoclopramide (Verified Allergy, Severe, MENTAL STATUS CHANGES, 11/22/17) Penicillins (Verified Allergy, Unknown, 11/22/17) patient reported morphine (Verified Adverse Reaction, Mild, ITCHING, 11/22/17) Home Meds Active Scripts Promethazine HCl (Phenergan) 25 Mg Supp.rect, 1 TAB DC Q8H for Nausea for 7 Days , #20 TAB Prov:LUCILA BIRD DO 12/22/17 Prochlorperazine Maleate (Compazine) 5 Mg Tablet, 1 TAB PO Q8H for Nausea for 7 Days, #20 TAB Prov:LUCILA BIRD DO 12/22/17 Pantoprazole Sodium (PANTOPRAZOLE SODIUM) 40 Mg Tablet.dr, 40 MG PO QDAY for 30 Days, #30 TAB.SR Prov:LUCILA BIRD DO 12/22/17 Prednisone (PREDNISONE) 20 Mg Tablet, 40 MG PO QDAY for 5 Days, #10 TAB Prov:LUCILA BIRD DO 12/22/17 Reported Medications Ondansetron (ZOFRAN ODT) 4 Mg Tab.rapdis, 4 MG PO Q12H, TAB.KAVITHA 12/22/17 Discontinued Reported Medications Escitalopram Oxalate (LEXAPRO) 20 Mg Tablet, 20 MG PO QDAY, TAB 12/20/16 Discontinued Scripts Omeprazole (OMEPRAZOLE) 20 Mg Capsule.dr, 1 CAP PO QDAY, #30 CAP 0 Refills Prov:SERGIO MILLER MD 11/22/17 Hydrocodone Bit/Acetaminophen (HYDROCODON-ACETAMINOPHEN 5-325) 1 Each Tablet, 1 EACH PO Q4H Y for PAIN, #12 TAB 0 Refills Prov:SERGIO MILLER MD 11/19/17 Promethazine Hcl (PROMETHAZINE HCL) 25 Mg Tablet, 25 MG PO Q8H Y for NAUSEA/ VOMITING, #30 TAB 0 Refills Prov:SERGIO MILLER MD 11/19/17 Metronidazole (METRONIDAZOLE) 500 Mg Tablet, 500 MG PO TID, #30 TAB 0 Refills Prov:SERGIO MILLER MD 11/19/17 Ciprofloxacin Hcl (CIPROFLOXACIN HCL) 500 Mg Tablet, 500 MG PO Q12H, #20 TAB 0 Refills Prov:SERGIO MILLER MD 11/19/17 Ipratropium [place] 0.06% Ns (IPRATROPIUM BROMIDE 0.06% NS) 15 Ml [place], 2 SPRAY NS BID, #1 BOT 11 Refills Prov:PAVEL CHATTERJEE JR, MD 08/24/17 Hx Smoking: No Smoking Status: Never Smoker Hx Substance Use Disorder: No Hx Alcohol Use: No Constitutional Vital Sign - Last 24 Hours 12/22/17 12/22/17 12/22/17 12/22/17 08:28 08:29 08:45 08:54 Temp 97.4 Pulse 125 115 Resp 20 B/P (MAP) 108/94 (99) 108/94 126/117 (120) Pulse Ox 94 95 O2 Delivery Room Air 12/22/17 12/22/17 12/22/17 12/22/17 09:00 09:20 09:24 09:30 B/P (MAP) 127/64 (85) 134/118 (123) 127/113 (118) Pulse Ox 91 12/22/17 12/22/17 12/22/17 12/22/17 09:35 09:45 10:00 10:05 Pulse 126 120 B/P (MAP) 107/94 (98) 117/86 (96) Pulse Ox 93 94 12/22/17 12/22/17 10:15 10:45 B/P (MAP) 134/93 (107) 145/80 (101) Physical Exam General Appearance: The patient is alert, has no immediate need for airway protection and no signs of toxicity. NAD Eyes: Pupils equal and round no pallor or injection. ENT, Mouth: Mucous membranes are moist. Respiratory: There are no retractions, lungs are clear to auscultation. Cardiovascular: + tachycardia Gastrointestinal: Abdomen is soft and non tender, no masses, bowel sounds normal. Neurological: No focal Deficits Skin: Warm and dry, no rashes. Musculoskeletal: Neck is supple non tender. DIFFERENTIAL DIAGNOSIS: After history and physical exam differential diagnosis was considered for abdominal pain including but not limited to appendicitis, cholecystitis, gastritis and urinary tract infection, UC flare Medical Decision Making Data Points Result Diagram: 12/22/17 0843 12/22/17 0843 Laboratory Hematology Test 12/22/17 08:43 12/22/17 09:20 Red Blood Count 5.39 M/uL (4.17-5.56) Mean Corpuscular Volume 86.5 fL (80.0-96.0) Mean Corpuscular Hemoglobin 30.1 pg (26.0-33.0) Mean Corpuscular Hemoglobin Concent 34.8 g/dL (32.0-36.0) Red Cell Distribution Width 12.9 % (11.5-14.5) Mean Platelet Volume 9.2 fL (7.2-11.1) Neutrophils (%) (Auto) 87.7 % (39.4-72.5) Lymphocytes (%) (Auto) 6.1 % (17.6-49.6) Monocytes (%) (Auto) 4.7 % (4.1-12.4) Eosinophils (%) (Auto) 1.0 % (0.4-6.7) Basophils (%) (Auto) 0.5 % (0.3-1.4) Nucleated RBC Relative Count (auto) 0.0 /100WBC Neutrophils # (Auto) 15.3 K/uL (2.0-7.4) Lymphocytes # (Auto) 1.1 K/uL (1.3-3.6) Monocytes # (Auto) 0.8 K/uL (0.3-1.0) Eosinophils # (Auto) 0.2 K/uL (0.0-0.5) Basophils # (Auto) 0.1 K/uL (0.0-0.1) Nucleated RBC Absolute Count (auto) 0.00 K/uL Erythrocyte Sedimentation Rate 24 mm/HOUR (0-20) Prothrombin Time 13.4 seconds (12.0-14.4) Prothromb Time International Ratio 1.02 Activated Partial Thromboplast Time 32 seconds (23-35) Sodium Level 141 mmol/L (137-145) Potassium Level 4.1 mmol/L (3.5-5.0) Chloride Level 103 mmol/L (98-107) Carbon Dioxide Level 23 mmol/L (22-31) Blood Urea Nitrogen 10 mg/dl (7-18) Creatinine 0.70 mg/dl (0.52-1.04) Glomerular Filtration Rate Calc > 60.0 Random Glucose 112 mg/dl (75-110) Lactate 2.3 mmol/L (0.7-2.1) Calcium Level 9.4 mg/dl (8.4-10.2) Total Bilirubin 0.4 mg/dl (0.2-1.3) Aspartate Amino Transf (AST/SGOT) 21 U/L (0-35) Alanine Aminotransferase (ALT/SGPT) 25 U/L (0-56) Alkaline Phosphatase 128 U/L (0-126) Total Protein 7.6 gm/dl (6.3-8.2) Albumin 4.0 g/dl (3.5-5.0) Lipase 31 U/L (23-300) Human Chorionic Gonadotropin, Qual Negative (NEGATIVE) Helicobacter pylori IgG Antibody Negative (NEGATIVE) Urine Color Yellow Urine Clarity Clear Urine pH 9.0 pH (4.8-9.5) Urine Specific [place] 1.016 Urine Protein Negative mg/dL (NEGATIVE) Urine Glucose (UA) Negative mg/dL (NEGATIVE) Urine Ketones Negative mg/dL (NEGATIVE) Urine Blood Negative (NEGATIVE) Urine Nitrite Negative (NEGATIVE) Urine Bilirubin Negative (NEGATIVE) Urine Urobilinogen Negative mg/dL (0.2-1.9) Urine Leukocyte Esterase Negative (NEGATIVE) Urine RBC None /HPF (0-2/HPF) Urine WBC <1 /HPF (0-5/HPF) Urine Squamous Epithelial Cells Many /LPF (</=FEW) Urine Bacteria Few /HPF (NONE-FEW) Urine Mucus Few /HPF (NONE-FEW) Chemistry Test 12/22/17 08:43 12/22/17 09:20 White Blood Count 17.5 k/uL (4.5-11.0) Red Blood Count 5.39 M/uL (4.17-5.56) Hemoglobin 16.2 g/dL (12.0-16.0) Hematocrit 46.7 % (34.0-47.0) Mean Corpuscular Volume 86.5 fL (80.0-96.0) Mean Corpuscular Hemoglobin 30.1 pg (26.0-33.0) Mean Corpuscular Hemoglobin Concent 34.8 g/dL (32.0-36.0) Red Cell Distribution Width 12.9 % (11.5-14.5) Platelet Count 325 K/uL (150-450) Mean Platelet Volume 9.2 fL (7.2-11.1) Neutrophils (%) (Auto) 87.7 % (39.4-72.5) Lymphocytes (%) (Auto) 6.1 % (17.6-49.6) Monocytes (%) (Auto) 4.7 % (4.1-12.4) Eosinophils (%) (Auto) 1.0 % (0.4-6.7) Basophils (%) (Auto) 0.5 % (0.3-1.4) Nucleated RBC Relative Count (auto) 0.0 /100WBC Neutrophils # (Auto) 15.3 K/uL (2.0-7.4) Lymphocytes # (Auto) 1.1 K/uL (1.3-3.6) Monocytes # (Auto) 0.8 K/uL (0.3-1.0) Eosinophils # (Auto) 0.2 K/uL (0.0-0.5) Basophils # (Auto) 0.1 K/uL (0.0-0.1) Nucleated RBC Absolute Count (auto) 0.00 K/uL Erythrocyte Sedimentation Rate 24 mm/HOUR (0-20) Prothrombin Time 13.4 seconds (12.0-14.4) Prothromb Time International Ratio 1.02 Activated Partial Thromboplast Time 32 seconds (23-35) Glomerular Filtration Rate Calc > 60.0 Lactate 2.3 mmol/L (0.7-2.1) Calcium Level 9.4 mg/dl (8.4-10.2) Total Bilirubin 0.4 mg/dl (0.2-1.3) Aspartate Amino Transf (AST/SGOT) 21 U/L (0-35) Alanine Aminotransferase (ALT/SGPT) 25 U/L (0-56) Alkaline Phosphatase 128 U/L (0-126) Total Protein 7.6 gm/dl (6.3-8.2) Albumin 4.0 g/dl (3.5-5.0) Lipase 31 U/L (23-300) Human Chorionic Gonadotropin, Qual Negative (NEGATIVE) Helicobacter pylori IgG Antibody Negative (NEGATIVE) Urine Color Yellow Urine Clarity Clear Urine pH 9.0 pH (4.8-9.5) Urine Specific [place] 1.016 Urine Protein Negative mg/dL (NEGATIVE) Urine Glucose (UA) Negative mg/dL (NEGATIVE) Urine Ketones Negative mg/dL (NEGATIVE) Urine Blood Negative (NEGATIVE) Urine Nitrite Negative (NEGATIVE) Urine Bilirubin Negative (NEGATIVE) Urine Urobilinogen Negative mg/dL (0.2-1.9) Urine Leukocyte Esterase Negative (NEGATIVE) Urine RBC None /HPF (0-2/HPF) Urine WBC <1 /HPF (0-5/HPF) Urine Squamous Epithelial Cells Many /LPF (</=FEW) Urine Bacteria Few /HPF (NONE-FEW) Urine Mucus Few /HPF (NONE-FEW) Coagulation Test 12/22/17 08:43 Prothrombin Time 13.4 seconds Prothromb Time International Ratio 1.02 Activated Partial Thromboplast Time 32 seconds Urinalysis Test 12/22/17 09:20 Urine Color Yellow Urine Clarity Clear Urine pH 9.0 pH (4.8-9.5) Urine Specific [place] 1.016 Urine Protein Negative mg/dL (NEGATIVE) Urine Glucose (UA) Negative mg/dL (NEGATIVE) Urine Ketones Negative mg/dL (NEGATIVE) Urine Blood Negative (NEGATIVE) Urine Nitrite Negative (NEGATIVE) Urine Bilirubin Negative (NEGATIVE) Urine Urobilinogen Negative mg/dL (0.2-1.9) Urine Leukocyte Esterase Negative (NEGATIVE) Urine RBC None /HPF (0-2/HPF) Urine WBC <1 /HPF (0-5/HPF) Urine Squamous Epithelial Cells Many /LPF (</=FEW) Urine Bacteria Few /HPF (NONE-FEW) Urine Mucus Few /HPF (NONE-FEW) EKG/Imaging Imaging 2 VIEWS CHEST INDICATION: Hematemesis COMPARISON: None available FINDINGS: Heart size within normal limits. There is no focal infiltrate or lobar consolidation. There is no pneumothorax or pleural effusion. IMPRESSION: 1. No acute cardiopulmonary process. TECHNIQUE: CT abdomen and pelvis with intravenous contrast. One of the following dose optimization techniques was utilized in the performance of this exam: Automated exposure control; adjustment of the mA and/ or kV according to the patient's size; or use of an iterative reconstruction technique. Specific details can be referenced in the facility's radiology CT exam operational policy. CONTRAST: 100 mL Isovue-370. COMPARISON: CT dated November 22, 2017. FINDINGS: Visualized lung bases: Negative. Hepatobiliary: Gallbladder surgically absent. Otherwise negative. Spleen: Negative. Adrenals: Negative. Pancreas: Negative. Kidneys/: Subcentimeter hypodensity within the right kidney which is too small to characterize however statistically represents a simple cyst. Intrauterine device noted which appears to be in proper position. Resolution of previously identified right adnexal cyst. Otherwise negative. GI: Negative. Appendix appears unremarkable. Vessels/spaces/nodes: Negative. Bones/soft tissues: Stable changes from ventral abdominal wall mesh hernia repair without residual/recurrent hernia. There is a small amount of post surgical scarring superficial to the mesh at the level of the umbilicus. This is unchanged. IMPRESSION: 1. No acute findings. No explanation for the patient's clinical symptoms. 2. Incidental/chronic findings, as above. ED Course/Re-evaluation ED Course Patient is a 32-year-old female here with complaints of hematemesis several episodes is also right-sided abdominal pain in the setting of ulcerative colitis. Patient denies excessive alcohol use, NSAIDs, aspirin, blood thinners. Patient was given a liter of fluids, pantoprazole, dilaudid, zofran, phenergan. CXR and CT AP showed no acute findings. She was discharged on prednisone, pantoprazole, compazine, phenergan supp and advised to follow up with her PCP and consider upper GI series. Labs were remarkable for leukocytosis, elevated ESR. She did complete a course of levaquin and flagyl for colitis on a previous visit so I will hold antimicrobial therapy at this time and pursue anti inflammatory therapy at this time. Patient was stable at time of discharge. Decision to Disposition Date: Dec 22, 2017 Decision to Disposition Time: 12:24 Depart Departure Latest Vital Signs Vital Signs Date Time Temp Pulse Resp B/P (MAP) Pulse Ox O2 Delivery O2 Flow Rate FiO2 6/2/18 10:45 145/80 (101) 12/22/17 10:05 120 94 12/22/17 08:29 97.4 20 Room Air Impression: Primary Impression: Abdominal pain Condition: Improved Disposition: HOME OR SELF-CARE Referrals: DERICK GORE DO (PCP) PRAVEEN JAMES MD New Scripts Promethazine HCl (Phenergan) 25 Mg Supp.rect 1 TAB DC Q8H for Nausea for 7 Days, #20 TAB Prov: LUCILA BIRD DO 12/22/17 Prochlorperazine Maleate (Compazine) 5 Mg Tablet 1 TAB PO Q8H for Nausea for 7 Days, #20 TAB Prov: LUCILA BIRD DO 12/22/17 Pantoprazole Sodium (PANTOPRAZOLE SODIUM) 40 Mg Tablet.dr 40 MG PO QDAY for 30 Days, #30 TAB.SR Prov: LUCILA BIRD DO 12/22/17 Prednisone (PREDNISONE) 20 Mg Tablet 40 MG PO QDAY for 5 Days, #10 TAB Prov: LUCILA BIRD DO 12/22/17 Patient Instructions: Abdominal Pain (ED) Additional Instructions: Please take 40 mg of pantoprazole daily in the morning. Please take prednisone 40 mg daily for 5 days. You may take Compazine 1 tablet every 8 hours as needed for nausea. Please return promptly for worsening pain, fevers, chills, nausea, vomiting. Please follow up with her family doctor. LUCILA BIRD DO Dec 22, 2017 08:30
[2017-12-22] MEDS ORDERED: ONDA4TAB PO (08:34)
[2017-12-22] MEDS ORDERED: ONDANSETRON 4 MG/2 ML VIAL IVP ONE ×2 (08:40→10:00)
[2017-12-22] MEDS ORDERED: PANTOPRAZOLE SOD(*)40 MG VIAL 80 MG in NS(*) 0.9% 100 ML BAG 100 ML IVPB ONE ×2 (08:40→09:05)
[2017-12-22] MEDS ORDERED: PROMETHAZINE 25 MG/ML 1 ML AMP IVP ONE (08:50)
[2017-12-22 08:57] LABS: PLATELET COUNT, AUTOMATED 325 K/uL (150-450)
[2017-12-22] MEDS ORDERED: LIDOCAINE 2% VISC SLN 15ML UDC PO ONE (09:00)
[2017-12-22] MEDS ORDERED: ATRO/SCOPOL/HYOSCY/PB 5 ML ELX PO ONE (09:00)
[2017-12-22] MEDS ORDERED: MAG HYD/AL HYD/SIMETH 30ML UDC PO ONE (09:00)
[2017-12-22 09:08] LABS: INR 1.02
[2017-12-22] MEDS ORDERED: PANTOPRAZOLE SOD 40 MG IV VIAL IVP ONE (09:10)
--- NOTE | 2017-12-22 09:43 | RADIOLOGY IMAGING REPORT ---
FACILITY: [facility] PATIENT NAME: Olya Hannah : 1985 MR: [id number] V: [id number] EXAM DATE: ORDERING PHYSICIAN: LUCILA BIRD TECHNOLOGIST: Location: [facility] Patient: Olya Hannah : 1985 Visit/Account:[id number] Date of Sevice: 12/22/2017 2 VIEWS CHEST INDICATION: Hematemesis COMPARISON: None available FINDINGS: Heart size within normal limits. There is no focal infiltrate or lobar consolidation. There is no pneumothorax or pleural effusion. IMPRESSION: 1. No acute cardiopulmonary process. Report Dictated By: Akil Ann MD at 12/22/2017 9:39 AM Report E-Signed By: Akil Ann MD at 12/22/2017 9:39 AM WSN:[id number]
[2017-12-22] MEDS ORDERED: HYDROmorphone* 1 MG/ML 1 MG/ML ML IVP ONE (10:10)
[2017-12-22] MEDS ORDERED: NS 0.9% 25 ML BAG 25 ML ONE (10:10)
[2017-12-22] MEDS ORDERED: IOPAMIDOL 76% 100 ML INFUS BTL 100 ML ONE (10:10)
[2017-12-22 10:45] VITALS: BP 145/80
--- NOTE | 2017-12-22 11:00 | RADIOLOGY IMAGING REPORT ---
FACILITY: [facility] PATIENT NAME: Olya Hannah : 1985 MR: [id number] V: [id number] EXAM DATE: ORDERING PHYSICIAN: LUCILA BIRD TECHNOLOGIST: Location: [facility] Patient: Olya Hannah : 1985 Visit/Account:[id number] Date of Sevice: 12/22/2017 ABDOMEN/PELVIS WITH CONTRAST HISTORY: Diffuse abdominal pain. TECHNIQUE: CT abdomen and pelvis with intravenous contrast. One of the following dose optimization techniques was utilized in the performance of this exam: Autom ated exposure control; adjustment of the mA and/or kV according to the patient's size; or use of an i terative reconstruction technique. Specific details can be referenced in the facility's radiology C T exam operational policy. CONTRAST: 100 mL Isovue-370. COMPARISON: CT dated November 22, 2017. FINDINGS: Visualized lung bases: Negative. Hepatobiliary: Gallbladder surgically absent. Otherwise negative. Spleen: Negative. Adrenals: Negative. Pancreas: Negative. Kidneys/: Subcentimeter hypodensity within the right kidney which is too small to characterize how ever statistically represents a simple cyst. Intrauterine device noted which appears to be in proper position. Resolution of previously identified right adnexal cyst. Otherwise negative. GI: Negative. Appendix appears unremarkable. Vessels/spaces/nodes: Negative. Bones/soft tissues: Stable changes from ventral abdominal wall mesh hernia repair without residual/r ecurrent hernia. There is a small amount of post surgical scarring superficial to the mesh at the lev el of the umbilicus. This is unchanged. IMPRESSION: 1. No acute findings. No explanation for the patient's clinical symptoms. 2. Incidental/chronic findings, as above. Report Dictated By: Akil Ann MD at 12/22/2017 10:53 AM Report E-Signed By: Akil Ann MD at 12/22/2017 10:56 AM WSN:[id number]
[2017-12-22] MEDS ORDERED: PANT40TA65 PO (11:24)
[2017-12-22] MEDS ORDERED: PRED20TA6 PO (11:24)
[2017-12-22] MEDS ORDERED: PROC5TAB2 PO (11:26)
[2017-12-22] MEDS ORDERED: diphenhydrAMINE 50 MG/ML VIAL IVP ONE (11:30)
[2017-12-22] MEDS: PROMETHAZINE 25 MG/ML 1 ML AMP IM ONE (12:10)
[2017-12-22] MEDS ORDERED: PROM25SU8 PR (12:22)
== END 2017-12-22 12:34 | disposition home or self-care (01) ==
LOC: ER 08:37
DX: R10.9 Unspecified abdominal pain (principal); D72.829 Elevated white blood cell count, unspecified
CPT/HCPCS: 71046; 74177; 81001; 83605; 83690; 84703; 85025; 85610; 85651; 85730; 86677; 96374; 96375; 99284; C9113; J1170; J1200; J2405; J2550; Q9967; 82040; 82247; 82310; 82374; 82435; 82565; 82947; 84075; 84132; 84155; 84295; 84450; 84460; 84520; J7050

== ENCOUNTER → 2017-12-31 | Outpatient (CLI) | payer BC ==
[2016-12-05 16:45] VITALS: BMI 46.9
[~2017-12-31] MED LIST changes: +BARIUM SULFATE 176 GM BTL PO ONE; +BARIUM SULFATE 340 GM POWD ONE; +PANT40TA65 PO; +PRED20TA6 PO; +PROC5TAB2 PO; +PROM25SU8 PR; +SUCR1ORA17 PO; +SUCR1TAB85 PO
--- NOTE | 2017-12-31 17:15 | RADIOLOGY IMAGING REPORT ---
FACILITY: [facility] [place] PATIENT NAME: Olya Hannah : 1985 MR: [id number] V: [id number] EXAM DATE: ORDERING PHYSICIAN: ADELE JERRY TECHNOLOGIST: Location: [facility] Patient: Olya Hannah : 1985 Visit/Account:[id number] Date of Sevice: 12/31/2017 Exam type: UPPER GI W/SMALL BOWEL SERIES History: Nausea vomiting diarrhea, colitis x1.5 months Comparison: CT abdomen pelvis December 22, 2017 . Findings: Double contrast upper GI series was performed with thick and thin barium and air contrast. There is a moderate amount of gastroesophageal reflux observed. There is no evidence of esophageal narrowing or mucosal erosion. The stomach duodenal bulb and duodenal C-loop appeared unremarkable. The barium was followed throughout the normal-appearing small bowel to the unremarkable terminal ileum. Transi t time to the right-sided the colon was 15 minutes. There is no evidence of small bowel distention m ucosal abnormality or extrinsic mass effect. The fluoroscopy dose area product was 2865.27 micro-Gra y per meter squared IMPRESSION: 1. Unremarkable upper GI series and small bowel follow-through other than a moderate amount of gastr oesophageal reflux Report Dictated By: Miroslava Rose MD at 12/31/2017 5:09 PM Report E-Signed By: Miroslava Rose MD at 12/31/2017 5:12 PM WSN:[email or web address]
== END ==
LOC: RAD 00:57
PROVIDERS: ATTEND Surgery
DX: K21.9 Gastro-esophageal reflux disease without esophagitis (principal)
CPT/HCPCS: 74245

== ENCOUNTER 2018-01-04 00:35 | Day surgery (SDC) | payer BC ==
[2016-12-05 16:45] VITALS: Ht 160 cm; Wt 128.8 kg
[2018-01-04] VITALS (7 sets, daily range): BP systolic 99–142; BP diastolic 76–106
[~2018-01-04] VITALS: Ht 160 cm; Wt 128.8 kg
[~2018-01-04 00:35] MED LIST changes: -BARIUM SULFATE 176 GM BTL PO ONE; -BARIUM SULFATE 340 GM POWD ONE
[2018-01-04 06:43] LABS: PLATELET COUNT, AUTOMATED 336 K/uL (150-450)
[2018-01-04] MEDS ORDERED: KETAMINE HCL 200 MG/20 ML MDV ONE (07:24)
[2018-01-04] MEDS ORDERED: LIDOCAINE MPF 1% 5 ML VIAL ONE ×2 (07:33→12:11)
[2018-01-04] MEDS ORDERED: PROPOFOL EMUL(*) 10MG/ML 20 ML 40 ML ONE ×2 (07:33→12:11)
[2018-01-04] MEDS ORDERED: LIDOCAINE/SOD BICARB 8.4% SYR ID ONE (07:40)
[2018-01-04] MEDS ORDERED: MIDAZOLAM 2 MG/2 ML VIAL IVP PRN (07:40)
[2018-01-04] MEDS ORDERED: NORMOSOL R SOLN(*) 1000 ML BAG 1,000 ML IV PRN (07:40)
[2018-01-04] MEDS ORDERED: diphenhydrAMINE 50 MG/ML VIAL IVP ONE (07:50)
--- NOTE | 2018-01-04 09:45 | Short(Outpt) Discharge Summary ---
Discharge Summary Reason for Hosp/Final Diag: (1) Colitis Status: Chronic Hospital Course & Plan: EGD with biopsies and colonoscopy with random biopsies completed without problems. (2) Diarrhea Status: Chronic (3) Abdominal pain Status: Chronic (4) Nausea & vomiting Status: Chronic Departure Discharge to: Home, Self Care Discharge Instructions Home Meds Active Scripts Sucralfate (CARAFATE) 1 Gm Tablet, 1 GM PO QID, #60 TAB 1 Refill If you can't swallow the tablet, grind it up in a small glass and add water to make a slurry. Prov:ADELE JERRY MD 12/26/17 Ondansetron (ZOFRAN ODT) 4 Mg Tab.rapdis, 1 TAB.KAVITHA PO TID Y for NAUSEA/VOMITING , #20 TAB.KAVITHA 0 Refills Prov:ADELE JERRY MD 12/25/17 Promethazine HCl (Phenergan) 25 Mg Supp.rect, 1 TAB MO Q8H for Nausea for 7 Days , #20 TAB Prov:LUCILA BIRD DO 12/22/17 Prochlorperazine Maleate (Compazine) 5 Mg Tablet, 1 TAB PO Q8H for Nausea for 7 Days, #20 TAB Prov:LUCILA BIRD DO 12/22/17 Pantoprazole Sodium (PANTOPRAZOLE SODIUM) 40 Mg Tablet.dr, 40 MG PO QDAY for 30 Days, #30 TAB.SR Prov:LUCILA BIRD DO 12/22/17 Reported Medications Trazodone Hcl (TRAZODONE HCL) 50 Mg Tablet, 20 MG PO QHS 01/02/18 Escitalopram Oxalate (LEXAPRO) 20 Mg Tablet, 1 TAB PO QDAY, TAB 12/25/17 Discontinued Scripts Prednisone (PREDNISONE) 20 Mg Tablet, 40 MG PO QDAY for 5 Days, #10 TAB Prov:LUCILA BIRD DO 12/22/17 Follow up Referrals: General Surgery - 01/15/18 @ Surgery, General with Adele Jerry Md You have a follow up appointment scheduled with Dr. Jerry on 01/15/18, at 11: 00am. Diet: Regular Activity: As Tolerated Special Instructions: Your EGD and colonoscopy were completed without any problems and your prep was excellent. I didn't find any evidence for ulcers, inflammation, cancer, etc. I will see you back in my office and I'll discuss all results with you and we'll come up with a game plan for further evaluation and treatment. Problem Qualifiers (1) Diarrhea: Diarrhea type: unspecified type Qualified Codes: R19.7 - Diarrhea, unspecified (2) Abdominal pain: Abdominal location: generalized Qualified Codes: R10.84 - Generalized abdominal pain ADELE JERRY MD Jan 04, 2018 09:44
[2018-01-07] MEDS ORDERED: DICY20TA70 PO (12:48)
== END 2018-01-04 11:00 | disposition home or self-care (01) ==
LOC: OR 00:35
PROVIDERS: ATTEND Surgery
DX: K44.9 Diaphragmatic hernia without obstruction or gangrene (principal)
CPT/HCPCS: 00811; 36415; 43239; 45380; 82248; 83516; 84703; 85025; 85651; 86140; 87077; 88305; J1200; J2001; J2250; J2704; J3490; 82040; 82247; 82310; 82374; 82435; 82565; 82947; 84075; 84132; 84155; 84295; 84450; 84460; 84520

== ENCOUNTER 2018-02-28 14:22 | Outpatient (RCR) | payer BC ==
[2016-12-05 16:45] VITALS: Wt 125.1 kg
[2018-02-14 14:55] VITALS: BP 135/102
--- NOTE | 2018-02-14 19:21 | ONCOLOGY CONSULTATION ---
EVENT DATE: February 14, 2018 REFERRING PHYSICIAN Jah Izaguirre M.D. REASON FOR CONSULTATION Evaluation and management of chronic leukocytosis and erythrocytosis. HEMATOLOGY HISTORY The patient is a 32-year-old female who has been seen by Dr. Izaguirre for evaluation of chronic recurrent nausea and vomiting, and alternating diarrhea and constipation. The patient had a workup including CT scans, upper GI with small bowel follow through, EGD and colonoscopy which did not reveal any underlying cause for her symptoms. There was no evidence of inflammatory bowel disease, microscopic or gross colitis, peptic ulcer disease or any other GI disease. She was shown to have persistent leukocytosis over the last year and a half, as well as persistent erythrocytosis. She is using currently Zofran for her nausea and vomiting. For her depression she is using trazodone and Lexapro. The patient denies any constitutional symptoms. PAST MEDICAL HISTORY Depression. PAST SURGICAL HISTORY 1. Cholecystectomy in 2013. 2. Hernia repair in 2013 and 2016. 3. in 2011 and 2013. SOCIAL HISTORY Patient is with three children. 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 She drinks one to two glasses of wine per week. Denies any abuse of illicit drugs. FAMILY HISTORY Mother had colon cancer at the age of 32. CURRENT MEDICATIONS 1. Ipratropium bromide nasal spray twice daily. 2. Zofran 4 mg three times daily as needed for nausea and vomiting. 3. Trazodone 50 mg at bedtime. 4. Sucralfate 1 g four times daily. 5. Lexapro 20 mg once daily. ALLERGIES 1. AMOXICILLIN which causes vomiting. 2. PENICILLIN which causes vomiting. 3. REGLAN which causes extrapyramidal symptoms. REVIEW OF SYSTEMS CONSTITUTIONAL: No appetite or weight change. No fever, chills or sweating. No recent infection. HEENT: Ears: No tinnitus or hearing problem. Nose: No nasal discharge or epistaxis. Throat: No sore throat or mouth ulcers. Eyes: No diplopia or visual changes. RESPIRATORY: No shortness of breath. No cough, expectoration or hemoptysis. She snores at night. CARDIOVASCULAR: No chest pain, orthopnea, or paroxysmal nocturnal dyspnea (PND) . No edema. No palpitations. GASTROINTESTINAL: She has nausea and vomiting. She has nausea all the time, but she has vomiting about twice per week. She has alternating diarrhea and constipation. No change in bowel movements. No heartburn or swallowing difficulties. No abdominal pain. She has abdominal cramps sometimes. No jaundice. No hematemesis, melena. Denies any bleeding per rectum. GENITOURINARY: No hematuria or dysuria. MUSCULOSKELETAL: No pain in the muscles, joints or bones. NEUROLOGICAL: No tingling or numbness in the hands or feet. She has headaches. No convulsions. HEMATOLOGIC/LYMPHATIC: No bleeding or easy bruising. She is weak and fatigued. No enlarged lymph nodes. SKIN: No skin rash or lumps. PSYCHIATRIC: No anxiety or depression. PHYSICAL EXAMINATION GENERAL: Looks stable. Well-developed, well-nourished, and in no acute distress. VITAL SIGNS: Blood pressure 135/102, pulse 99 per minute, respirations 16 per minute, temperature 97.8, pulse ox 95% on room air. HEENT: Head: Atraumatic. No sinus tenderness to palpation. Eyes: No icterus or conjunctivitis. Mouth and Throat: No oral thrush or mucositis. NECK: Supple. No cervical or supraclavicular lymphadenopathy. LUNGS: Clear to auscultation and percussion bilaterally. HEART: Regular rate and rhythm. No gallops, murmurs, clicks or rubs. ABDOMEN: Soft and lax. No tenderness. No hepatosplenomegaly. No masses. EXTREMITIES: No cyanosis, clubbing or edema. LYMPHATICS: No peripheral lymphadenopathy. NEUROLOGICAL: Conscious, alert and oriented times three. No focal motor or sensory deficits. PSYCHIATRIC: Mood and affect appear normal. SKIN: No skin rash, bruise or purpuric eruption. DIAGNOSTIC DATA CBC showed white count 16.9, hemoglobin 16.7, hematocrit 49.2, platelets 336, 000. ANC is 12.6. ASSESSMENT 1. Erythrocytosis associated with neutrophilic leukocytosis. This could be due to underlying myeloproliferative disorder like polycythemia vera. For the diagnosis of polycythemia vera, JAK2 mutation analysis from the peripheral blood will be positive in 95% of the cases, while erythropoietin level would be low in those patients. I am planning to check both and repeat her CBC. Patient also has obesity and this could cause sleep apnea, and if the test for polycythemia vera is negative, then patient will be referred to do sleeping studies to explain her high white count and red blood cells. Living also in a high altitude area could cause mild elevation of the H and P because of this reason due to the high hypoxemia and low oxygen in the air. Regarding her neutrophilic leukocytosis, I am planning also to do a flow cytometry of the peripheral blood to rule out the possibility of underlying myeloproliferative disorder or lymphoma or leukemia. I am planning to see the patient in a week from now with the results of those tests to decide about further evaluation and management. 2. Depression, on treatment. PLAN 1. CBC. 2. JAK2 mutation analysis. 3. Erythropoietin level. 4. Flow cytometry of the peripheral blood. 5. Patient to return in one week for further evaluation and management. 6. Patient to contact us for any new concerns or complaints. KASID
[2018-02-20 13:14] VITALS: BP 112/89
[2018-02-20 13:23] LABS: PLATELET COUNT, AUTOMATED 266 K/uL (150-450)
[~2018-02-28 14:22] MED LIST changes: +IPRA15SP7; -TRAZ-156 PO; +TRAZ50TA34 PO
[2018-02-28 14:41] VITALS: BP 139/95
--- NOTE | 2018-02-28 17:28 | [facility] ONCOLOGY NOTE ---
EVENT DATE: February 28, 2018 DIAGNOSES 1. Erythrocytosis. 2. Depression. CHIEF COMPLAINT Patient is here today for followup of her erythrocytosis and chronic leukocytosis. HEMATOLOGY HISTORY The patient is a 32-year-old female who has been seen by Dr. Izaguirre for evaluation of chronic recurrent nausea and vomiting, and alternating diarrhea and constipation. The patient had a workup including CT scans, upper GI with small bowel follow through, EGD and colonoscopy which did not reveal any underlying cause for her symptoms. There was no evidence of inflammatory bowel disease, microscopic or gross colitis, peptic ulcer disease or any other GI disease. She was shown to have persistent leukocytosis over the last year and a half, as well as persistent erythrocytosis. She is using currently Zofran for her nausea and vomiting. For her depression, she is using trazodone and Lexapro. The patient denies any constitutional symptoms. Erythroprotein level came back normal at 7. JAK2 mutation analysis for V617F mutation and exon 12 mutation came back negative. Peripheral blood for flow cytometry showed relative increase in phenotypically normal myeloid cells without flow cytometric evidence of monoclonality, acute leukemia, or lymphoproliferative disorder. HISTORY OF PRESENT ILLNESS Patient is here today for followup of her chronic leukocytosis and erythrocytosis. She is complaining of occasional nausea and constipation. She has also a headache. She is weak, tired, and fatigued. Other than that, she is very stable. PAST MEDICAL HISTORY Depression. PAST SURGICAL HISTORY 1. Cholecystectomy in 2013. 2. Hernia repair in 2013 and 2016. 3. in 2011 and 2013. SOCIAL HISTORY Patient is with three children. 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 She drinks one to two glasses of wine per week. Denies any abuse of illicit drugs. FAMILY HISTORY Mother had colon cancer at the age of 32. CURRENT MEDICATIONS 1. Ipratropium bromide nasal spray twice daily. 2. Zofran 4 mg three times daily as needed for nausea and vomiting. 3. Trazodone 50 mg at bedtime. 4. Sucralfate 1 g four times daily. 5. Lexapro 20 mg once daily. ALLERGIES 1. AMOXICILLIN which causes vomiting. 2. PENICILLIN which causes vomiting. 3. REGLAN which causes extrapyramidal symptoms. REVIEW OF SYSTEMS CONSTITUTIONAL: No appetite or weight change. No fever, chills, or sweating. No recent infection. HEENT: Ears: No tinnitus or hearing problem. Nose: No nasal discharge or epistaxis. Throat: No sore throat or mouth ulcers. Eyes: No diplopia or visual changes. RESPIRATORY: No shortness of breath. No cough, expectoration or hemoptysis. She snores at night. CARDIOVASCULAR: No chest pain, orthopnea, or paroxysmal nocturnal dyspnea (PND) . No edema. No palpitations. GASTROINTESTINAL: Patient had occasional nausea and constipation. No change in bowel movements. No heartburn or swallowing difficulties. No abdominal pain. She has abdominal cramps sometimes. No jaundice. No hematemesis, melena. Denies any bleeding per rectum. GENITOURINARY: No hematuria or dysuria. MUSCULOSKELETAL: No pain in the muscles, joints or bones. NEUROLOGICAL: No tingling or numbness in the hands or feet. She has headaches. No convulsions. HEMATOLOGIC/LYMPHATIC: No bleeding or easy bruising. She is weak, tired, and fatigued. No enlarged lymph nodes. SKIN: No skin rash or lumps. PSYCHIATRIC: No anxiety or depression. PHYSICAL EXAMINATION GENERAL: Looks stable. Well developed, well nourished, and in no acute distress. VITAL SIGNS: Blood pressure 139/95, pulse 107 per minute, respirations 18 per minute, temperature 97.1, pulse ox 98% on room air. HEENT: Head: Atraumatic. No sinus tenderness to palpation. Eyes: No icterus or conjunctivitis. Mouth and Throat: No oral thrush or mucositis. NECK: Supple. No cervical or supraclavicular lymphadenopathy. LUNGS: Clear to auscultation and percussion bilaterally. HEART: Regular rate and rhythm. No gallops, murmurs, clicks, or rubs. ABDOMEN: Soft and lax. No tenderness. No hepatosplenomegaly. No masses. EXTREMITIES: No cyanosis, clubbing, or edema. LYMPHATICS: No peripheral lymphadenopathy. NEUROLOGICAL: Conscious, alert, and oriented times three. No focal motor or sensory deficits. PSYCHIATRIC: Mood and affect appear normal. SKIN: No skin rash, bruise, or purpuric eruption. DIAGNOSTIC DATA CBC showed white count 16.8, hemoglobin 15.6, hematocrit 45.5, platelets 266, 000. ASSESSMENT 1. Erythrocytosis associated with neutrophilic leukocytosis. Peripheral blood for flow cytometry did reveal some increase in the morphologically normal and phenotypically normal myeloid cells without flow cytometric evidence of monoclonality, acute leukemia, or lymphoproliferative disorder. JAK2 mutation analysis for V617F and exon 12 mutations came back negative. Erythropoietin level was normal at 7. There is no evidence of underlying myeloproliferative disorder. Her repeat CBC showed normal white count at 9.8, hemoglobin 15.6, hematocrit 45.5, platelets 266,000. There is no evidence of underlying hematological disease. I am planning to refer the patient back to her primary care physician, Dr. Varma, and I will be more than happy to see her in the future if she has any hematological problems. 2. Depression, on treatment. PLAN 1. Patient to return on p.r.n. basis. 2. Patient to continue followup with Dr. Varma. 3. Patient to contact us for any new concerns or complaints. [facility]
== END 2018-03-01 07:45 | disposition home or self-care (01) ==
LOC: ONC 14:22
PROVIDERS: ATTEND Internal Medicine Hematology
DX: D72.829 Elevated white blood cell count, unspecified (principal); D75.1 Secondary polycythemia; F32.9 Major depressive disorder, single episode, unspecified
CPT/HCPCS: 36415; 81270; 81403; 82668; 85025; 88184; 88185; 88189; 99203; 99212

== ENCOUNTER 2018-08-06 21:11 | Inpatient (IN) | payer BC ==
[~2018-08-06] VITALS: Ht 160 cm; Wt 123.2 kg
[~2018-08-06 21:11] MED LIST changes: -AZIT-1 PO; -DOXY-179 PO; -IPR14R INH; -MULT-947 PO; -VENL150T10 PO; -VENL75TA12 PO; -mirena
[2018-08-06] MEDS ORDERED: AZIT-1 PO (21:25)
[2018-08-06] MEDS ORDERED: VENL75TA12 PO (21:25)
[2018-08-06] MEDS ORDERED: DOXY-179 PO (21:25)
--- NOTE | 2018-08-06 21:41 | ER Report ---
History and Physical Time Seen By MD: 21:41 Hx. of Stated Complaint: PT REPORTS HAVING BAD HEADACHE FOR 3 DAYS. PT WENT TO URGENT CARE AROUND 14:00 AND GOT NAUSEA MEDICINE AND A STEROID. PT REPORTS BEING DIAGNOSED WITH SINUS INFECTION. HPI/ROS CHIEF COMPLAINT: headache, sinus pain, fevers HISTORY OF PRESENT ILLNESS: This is a 33 year old female. She has been treated for a sinus infection. Has had severe headaches recently and pain in the frontal sinuses and down into her neck. This has worsened tonight. She is having severe nausea and vomiting. Has had about 64oz of poweraid today and some mashed potatoes. She feels like her heart has been racing. She is very light- headed/dizzy and feels like she might pass out. Very sweaty as well. Mouth is sore, dry lips and sore gums. She has muscle aches. No problem with her bowels. No problem with urination other than decreased amount. She denies shortness of breath or chest pain. Had been prescribed a steroid as well as Doxycycline and Azithromycin at urgent care today for sinusitis. Allergies: Coded Allergies: metoclopramide (Verified Allergy, Severe, MENTAL STATUS CHANGES, 08/06/18) Penicillins (Verified Allergy, Unknown, 08/06/18) patient reported morphine (Verified Adverse Reaction, Mild, ITCHING, 08/06/18) Home Meds Reported Medications Azithromycin (ZITHROMAX) 250 Mg Tablet, 1 TAB PO QDAY, TAB 08/06/18 Venlafaxine Hcl (VENLAFAXINE HCL) 75 Mg Tab, 150 MG PO ONCE, #5 TAB 08/06/18 Doxycycline Hyclate (DOXYCYCLINE HYCLATE) 100 Mg Tablet, 100 MG PO BID 08/06/18 Discontinued Reported Medications Trazodone Hcl (TRAZODONE HCL) 50 Mg Tablet, 20 MG PO QHS 01/02/18 Escitalopram Oxalate (LEXAPRO) 20 Mg Tablet, 1 TAB PO QDAY, TAB 12/25/17 Discontinued Scripts Ipratropium [place] 0.06% Ns (IPRATROPIUM BROMIDE 0.06% NS) 15 Ml [place], 2 SPRAYS NA BID for 90 Days, #3 BOT 2 Refills Prov:ADELE JERRY MD 02/06/18 Ondansetron (ZOFRAN ODT) 4 Mg Tab.rapdis, 1 TAB.KAVITHA PO TID PRN for NAUSEA/VOMITING, #20 TAB.KAVITHA 0 Refills Prov:ADELE JERRY MD 01/29/18 Dicyclomine Hcl (DICYCLOMINE HCL) 20 Mg Tablet, 1 TAB PO QID, #120 TAB 3 Refills Prov:ADELE JERRY MD 01/07/18 Sucralfate (CARAFATE) 1 Gm Tablet, 1 GM PO QID, #60 TAB 1 Refill If you can't swallow the tablet, grind it up in a small glass and add water to make a slurry. Prov:ADELE JERRY MD 12/26/17 Promethazine HCl (Phenergan) 25 Mg Supp.rect, 1 TAB LA Q8H for Nausea for 7 Days, #20 TAB Prov:LUCILA BIRD DO 12/22/17 Prochlorperazine Maleate (Compazine) 5 Mg Tablet, 1 TAB PO Q8H for Nausea for 7 Days, #20 TAB Prov:LUCILA BIRD DO 12/22/17 Past Medical/Surgical History Headaches, ulcerative colitis, umbilical hernia, , cholecystectomy Reviewed Nurses Notes: Yes Hx Smoking: No Smoking Status: Never Smoker Hx Substance Use Disorder: No Hx Alcohol Use: No Constitutional Vital Sign - Last 24 Hours 08/06/18 08/06/18 08/06/18 08/06/18 21:18 21:19 21:26 21:41 Temp 98.5 Pulse 141 140 129 Resp 22 11 19 B/P (MAP) 153/103 (120) 153/103 Pulse Ox 96 97 96 O2 Delivery Room Air 08/06/18 08/06/18 08/06/18 08/06/18 21:56 22:01 22:11 22:26 Pulse 122 113 118 Resp 13 18 23 B/P (MAP) 163/103 (123) Pulse Ox 96 97 97 08/06/18 08/06/18 08/06/18 08/06/18 22:49 22:56 23:00 23:05 Pulse 115 114 Resp 23 23 B/P (MAP) 130/93 (105) 134/90 (105) Pulse Ox 89 90 08/06/18 08/06/18 08/06/18 08/06/18 23:20 23:30 23:35 23:50 Pulse 111 112 108 Resp 7 18 9 B/P (MAP) 136/82 (100) Pulse Ox 97 95 96 08/07/18 08/07/18 08/07/18 08/07/18 00:00 00:20 00:35 01:00 Pulse 135 126 B/P (MAP) 144/83 (103) 133/87 (102) Pulse Ox 92 92 08/07/18 08/07/18 08/07/18 08/07/18 01:00 01:15 01:20 01:30 Pulse 102 107 105 B/P (MAP) 133/87 (102) 120/79 (93) Pulse Ox 97 95 08/07/18 08/07/18 08/07/18 08/07/18 01:35 01:50 02:00 02:05 Pulse 103 102 100 B/P (MAP) 128/88 (101) Pulse Ox 95 95 08/07/18 08/07/18 08/07/18 08/07/18 02:20 02:30 02:35 03:00 Pulse 99 95 B/P (MAP) 140/90 (107) 137/86 (103) Pulse Ox 96 97 08/07/18 08/07/18 08/07/18 03:05 03:10 03:15 Pulse 96 96 Pulse Ox 96 98 95 Intake and Output 08/06/18 08/06/18 08/07/18 14:59 22:59 06:59 Intake Total 1000 ml 1000 ml Balance 1000 ml 1000 ml Physical Exam General Appearance: The patient is alert. She is very ill appearing. Eyes: Pupils are equal, round. Reactive to light. No pallor, injection or icterus. Extraocular movements are intact. ENT: Mucous membranes are dry. Lips cracked. Normal oral mucosa without oral lesions. Posterior oropharynx is normal. Normal tympanic membranes and canals. Neck: Supple, tender throughout the anterior and posterior aspect of the neck/cervical spine. Positive Brudzinskis sign, negative Kernigs. Pain with movement of the neck. Respiratory: Lungs are clear to auscultation. Cardiovascular: Tachycardia, but with a regular rhythm. No murmurs, gallops or rubs. Normal capillary refill. Gastrointestinal: Abdomen is soft and non tender. Nondistended. Normal active bowel sounds. Neurological: Alert and oriented x3. Cranial nerves II through XII show no acute deficits on my exam. No focal neurologic deficits in the extremities. Skin: warm and diaphoretic. No rashes. Musculoskeletal: No tenderness in palpation of the cervical, thoracic and lumbar spine. DIFFERENTIAL DIAGNOSIS: After history and physical exam, differential diagnosis was considered for headache including but not limited to subarachnoid hemorrhage and infectious causes such as meningitis, pharyngitis and sinusitis. Medical Decision Making Data Points Result Diagram: 08/06/18212408/06/182124 Laboratory Hematology Test 08/06/18 21:25 08/07/18 00:31 Red Blood Count 5.78 M/uL (4.17-5.56) Mean Corpuscular Volume 88.1 fL (80.0-96.0) Mean Corpuscular Hemoglobin 30.0 pg (26.0-33.0) Mean Corpuscular Hemoglobin Concent 34.1 g/dL (32.0-36.0) Red Cell Distribution Width 13.7 % (11.5-14.5) Mean Platelet Volume 9.4 fL (7.2-11.1) Neutrophils (%) (Auto) 92.3 % (39.4-72.5) Lymphocytes (%) (Auto) 6.2 % (17.6-49.6) Monocytes (%) (Auto) 0.9 % (4.1-12.4) Eosinophils (%) (Auto) 0.1 % (0.4-6.7) Basophils (%) (Auto) 0.5 % (0.3-1.4) Nucleated RBC Relative Count (auto) 0.0 /100WBC Neutrophils # (Auto) 14.3 K/uL (2.0-7.4) Lymphocytes # (Auto) 1.0 K/uL (1.3-3.6) Monocytes # (Auto) 0.1 K/uL (0.3-1.0) Eosinophils # (Auto) 0.0 K/uL (0.0-0.5) Basophils # (Auto) 0.1 K/uL (0.0-0.1) Nucleated RBC Absolute Count (auto) 0.00 K/uL Erythrocyte Sedimentation Rate 35 mm/HOUR (0-20) Urine Color Yellow Urine Clarity Cloudy Urine pH 5.0 pH (4.8-9.5) Urine Specific Merlin 1.014 Urine Protein Negative mg/dL (NEGATIVE) Urine Glucose (UA) Negative mg/dL (NEGATIVE) Urine Ketones Negative mg/dL (NEGATIVE) Urine Blood Small (NEGATIVE) Urine Nitrite Negative (NEGATIVE) Urine Bilirubin Negative (NEGATIVE) Urine Urobilinogen Negative mg/dL (0.2-1.9) Urine Leukocyte Esterase Negative (NEGATIVE) Urine RBC None /HPF (0-2/HPF) Urine WBC 1 /HPF (0-5/HPF) Urine Squamous Epithelial Cells Many /LPF (</=FEW) Urine Bacteria Few /HPF (NONE-FEW) Urine Mucus Few /HPF (NONE-FEW) Sodium Level 138 mmol/L (137-145) Potassium Level 4.5 mmol/L (3.5-5.0) Chloride Level 107 mmol/L (98-107) Carbon Dioxide Level 19 mmol/L (22-31) Blood Urea Nitrogen 9 mg/dl (7-18) Creatinine 0.60 mg/dl (0.52-1.04) Glomerular Filtration Rate Calc > 60.0 Random Glucose 157 mg/dl (75-110) Lactate 2.6 mmol/L (0.7-2.1) Calcium Level 10.4 mg/dl (8.4-10.2) Total Bilirubin 0.4 mg/dl (0.2-1.3) Aspartate Amino Transf (AST/SGOT) 40 U/L (0-35) Alanine Aminotransferase (ALT/SGPT) 36 U/L (0-56) Alkaline Phosphatase 106 U/L (0-126) C-Reactive Protein 2.2 mg/dl (<1.0) Total Protein 8.6 g/dl (6.3-8.2) Albumin 4.8 g/dl (3.5-5.0) Human Chorionic Gonadotropin, Qual Negative (NEGATIVE) CSF Appearance Clear (CLEAR) CSF Color Colorless (COLORLESS) CSF WBC 13 /mm3 (0-5) CSF RBC 308 /mm3 CSF Glucose 79 mg/dl CSF Total Protein 41 mg/dl (15-50) Haemophilus influenzae B Antigen Negative (NEGATIVE) Neisseria meningitidis A/Y Antigen Negative (NEGATIVE) Neisseria meningitidis C/W135 Ag Negative (NEGATIVE) N. meningitidis B/E.coli K1 Ag Negative (NEGATIVE) Group B Streptococcus Antigen Negative (NEGATIVE) Streptococcus pneumoniae Antigen Negative (NEGATIVE) Chemistry Test 08/06/18 21:25 08/07/18 00:31 White Blood Count 15.5 k/uL (4.5-11.0) Red Blood Count 5.78 M/uL (4.17-5.56) Hemoglobin 17.4 g/dL (12.0-16.0) Hematocrit 50.9 % (34.0-47.0) Mean Corpuscular Volume 88.1 fL (80.0-96.0) Mean Corpuscular Hemoglobin 30.0 pg (26.0-33.0) Mean Corpuscular Hemoglobin Concent 34.1 g/dL (32.0-36.0) Red Cell Distribution Width 13.7 % (11.5-14.5) Platelet Count 450 K/uL (150-450) Mean Platelet Volume 9.4 fL (7.2-11.1) Neutrophils (%) (Auto) 92.3 % (39.4-72.5) Lymphocytes (%) (Auto) 6.2 % (17.6-49.6) Monocytes (%) (Auto) 0.9 % (4.1-12.4) Eosinophils (%) (Auto) 0.1 % (0.4-6.7) Basophils (%) (Auto) 0.5 % (0.3-1.4) Nucleated RBC Relative Count (auto) 0.0 /100WBC Neutrophils # (Auto) 14.3 K/uL (2.0-7.4) Lymphocytes # (Auto) 1.0 K/uL (1.3-3.6) Monocytes # (Auto) 0.1 K/uL (0.3-1.0) Eosinophils # (Auto) 0.0 K/uL (0.0-0.5) Basophils # (Auto) 0.1 K/uL (0.0-0.1) Nucleated RBC Absolute Count (auto) 0.00 K/uL Erythrocyte Sedimentation Rate 35 mm/HOUR (0-20) Urine Color Yellow Urine Clarity Cloudy Urine pH 5.0 pH (4.8-9.5) Urine Specific Merlin 1.014 Urine Protein Negative mg/dL (NEGATIVE) Urine Glucose (UA) Negative mg/dL (NEGATIVE) Urine Ketones Negative mg/dL (NEGATIVE) Urine Blood Small (NEGATIVE) Urine Nitrite Negative (NEGATIVE) Urine Bilirubin Negative (NEGATIVE) Urine Urobilinogen Negative mg/dL (0.2-1.9) Urine Leukocyte Esterase Negative (NEGATIVE) Urine RBC None /HPF (0-2/HPF) Urine WBC 1 /HPF (0-5/HPF) Urine Squamous Epithelial Cells Many /LPF (</=FEW) Urine Bacteria Few /HPF (NONE-FEW) Urine Mucus Few /HPF (NONE-FEW) Glomerular Filtration Rate Calc > 60.0 Lactate 2.6 mmol/L (0.7-2.1) Calcium Level 10.4 mg/dl (8.4-10.2) Total Bilirubin 0.4 mg/dl (0.2-1.3) Aspartate Amino Transf (AST/SGOT) 40 U/L (0-35) Alanine Aminotransferase (ALT/SGPT) 36 U/L (0-56) Alkaline Phosphatase 106 U/L (0-126) C-Reactive Protein 2.2 mg/dl (<1.0) Total Protein 8.6 g/dl (6.3-8.2) Albumin 4.8 g/dl (3.5-5.0) Human Chorionic Gonadotropin, Qual Negative (NEGATIVE) CSF Appearance Clear (CLEAR) CSF Color Colorless (COLORLESS) CSF WBC 13 /mm3 (0-5) CSF RBC 308 /mm3 CSF Glucose 79 mg/dl CSF Total Protein 41 mg/dl (15-50) Haemophilus influenzae B Antigen Negative (NEGATIVE) Neisseria meningitidis A/Y Antigen Negative (NEGATIVE) Neisseria meningitidis C/W135 Ag Negative (NEGATIVE) N. meningitidis B/E.coli K1 Ag Negative (NEGATIVE) Group B Streptococcus Antigen Negative (NEGATIVE) Streptococcus pneumoniae Antigen Negative (NEGATIVE) Urinalysis Test 08/06/18 21:25 Urine Color Yellow Urine Clarity Cloudy Urine pH 5.0 pH (4.8-9.5) Urine Specific Merlin 1.014 Urine Protein Negative mg/dL (NEGATIVE) Urine Glucose (UA) Negative mg/dL (NEGATIVE) Urine Ketones Negative mg/dL (NEGATIVE) Urine Blood Small (NEGATIVE) Urine Nitrite Negative (NEGATIVE) Urine Bilirubin Negative (NEGATIVE) Urine Urobilinogen Negative mg/dL (0.2-1.9) Urine Leukocyte Esterase Negative (NEGATIVE) Urine RBC None /HPF (0-2/HPF) Urine WBC 1 /HPF (0-5/HPF) Urine Squamous Epithelial Cells Many /LPF (</=FEW) Urine Bacteria Few /HPF (NONE-FEW) Urine Mucus Few /HPF (NONE-FEW) Microbiology Microbiology Date/Time Source Procedure Growth Status 08/07/18 00:31 Cerebrospinal Fluid Gram Stain - Final Resulted 08/07/18 00:31 Cerebrospinal Fluid CSF Culture Pending Resulted EKG/Imaging Imaging Head CT scan without contrast HISTORY: Headache, sinus pain COMPARISONS: 06/04/2017 TECHNIQUE: Non-contrast head CT was performed with sagittal and coronal reformations. One of the following dose optimization techniques was utilized in the performance of this exam: automated exposure control; adjustment of the mA and/or kV according to patient size; or use of iterative reconstruction technique. Specific details can be referenced in the facility's radiology CT exam operational policy. FINDINGS: There is no intracranial hemorrhage, hydrocephalus or midline shift. The basal cisterns, duncan-white differentiation, and convexity sulci are maintained. Normal orbital soft tissues. Unchanged perivascular space in the right basal ganglia. Clear mastoid air cells. Right maxillary sinus mucous retention cyst measures 1.6 cm. This portion of the right maxillary sinus was not imaged on prior. Additional right 7 mm maxillary sinus mucous retention cyst. Otherwise clear sinuses. Normal osseous structures. IMPRESSION: No acute intracranial abnormality. Right maxillary sinus mucous retention cysts measuring up to 1.6 cm. Report Dictated By: Akil Nuno MD at 08/06/2018 11:06 PM ED Course/Re-evaluation Clinical Indication for ER IV: Hydration, IV Access ED Course Initial evaluation with labs showing an elevated white count. She had a negative CT scan. CRP and ESR also elevated, as was the lactate. She had improvement with 2 liters of normal saline. Gave a small dose of Morphine and then found out she was allergic, Benadryl given. Phenergan for continued dry heaves. Later was given a few doses of Dilaudid 0.5mg for pain. Lumbar puncture done because of concern for meningitis. This was a traumatic tap, with increased white blood cells, but negative gram stain and normal glucose and protein. Appears to be viral meningitis. Supportive care and admitted to Dr. Jurado. Decision to Disposition Date: Aug 07, 2018 Decision to Disposition Time: 03:17 Depart Departure Latest Vital Signs Vital Signs Date Time Temp Pulse Resp B/P (MAP) Pulse Ox O2 Delivery O2 Flow Rate FiO2 08/07/18 03:15 96 95 08/07/18 03:00 137/86 (103) 08/06/18 23:50 9 08/06/18 21:19 98.5 Room Air Impression: Primary Impression: Viral meningitis Condition: Condition Unchanged Disposition: Admitted from ER Referrals: DERICK GORE DO (PCP) SERGIO MILLER MD Aug 06, 2018 21:41
[2018-08-06] MEDS ORDERED: NS(*) 0.9% 1000 ML BAG 1,000 ML IV ONE (21:50)
[2018-08-06] MEDS ORDERED: MORPHINE 4 MG/ML SDV IVP ONE (21:50)
[2018-08-06] MEDS ORDERED: ONDANSETRON 4 MG/2 ML VIAL IVP ONE (21:50)
[2018-08-06 22:00] LABS: PLATELET COUNT, AUTOMATED 450 K/uL (150-450)
[2018-08-06] MEDS ORDERED: diphenhydrAMINE 50 MG/ML VIAL IVP ONE (22:05)
[2018-08-06] MEDS ORDERED: diphenhydrAMINE 50 MG/ML VIAL ONE (22:06)
[2018-08-06] MEDS ORDERED: PROMETHAZINE 25 MG/ML 1 ML AMP IVP ONE (22:30)
[2018-08-06] MEDS ORDERED: HYDROMORPHONE HCL 1 MG/ML SYRINGE IVP ONE (22:30)
--- NOTE | 2018-08-06 23:14 | RADIOLOGY IMAGING REPORT ---
FACILITY: [facility] PATIENT NAME: Olya Hannah : 1985 MR: [id number] V: [id number] EXAM DATE: ORDERING PHYSICIAN: SERGIO MILLER TECHNOLOGIST: Location: [facility] Patient: Olya Hannah : 1985 Visit/Account:[id number] Date of Sevice: 08/06/[address] scan without contrast HISTORY: Headache, sinus pain COMPARISONS: 06/04/2017 TECHNIQUE: Non-contrast head CT was performed with sagittal and coronal reformations. One of the following dose optimization techniques was utilized in the performance of this exam: autom ated exposure control; adjustment of the mA and/or kV according to patient size; or use of iterative reconstruction technique. Specific details can be referenced in the facility's radiology CT exam ope rational policy. FINDINGS: There is no intracranial hemorrhage, hydrocephalus or midline shift. The basal cisterns, duncan-white differentiation, and convexity sulci are maintained. Normal orbital soft tissues. Unchanged perivascu lar space in the right basal ganglia. Clear mastoid air cells. Right maxillary sinus mucous retention cyst measures 1.6 cm. This portion of the right maxillary sinus was not imaged on prior. Additional right 7 mm maxillary sinus mucous rete ntion cyst. Otherwise clear sinuses. Normal osseous structures. IMPRESSION: No acute intracranial abnormality. Right maxillary sinus mucous retention cysts measuring up to 1.6 cm. Report Dictated By: Akil Nuno MD at 08/06/2018 11:06 PM Report E-Signed By: Akil Nuno MD at 08/06/2018 11:10 PM WSN:[id number]
[2018-08-07] MEDS ORDERED: NS(*) 0.9% 1000 ML BAG 1,000 ML IV ONE (00:05)
[2018-08-07] MEDS ORDERED: HYDROMORPHONE HCL 1 MG/ML SYRINGE IVP ONE ×2 (00:50→03:05)
[2018-08-07 03:50] VITALS: BP 135/97
[2018-08-07] MEDS ORDERED: INFLUENZA VIRUS VAC 0.5ML SYR IM ONLY ONE (04:10)
[2018-08-07] MEDS ORDERED: NS(*) 0.9% 1000 ML BAG 1,000 ML IV PRN (04:10)
--- NOTE | 2018-08-07 04:32 | History & Physical ---
History of Present Illness Chief Complaint Neck pain and fever History of Present Illness This patient presented to the emergency room after being seen at the urgent care. She complains of neck pain and fever, which started 3 days ago. Prior to this she had been sick since July 24, and has been on multiple courses of antibiotics since that time. History Problems: (1) Anxiety Status: Chronic Home Meds Reported Medications Azithromycin (ZITHROMAX) 250 Mg Tablet, 1 TAB PO QDAY, TAB 08/06/18 Venlafaxine Hcl (VENLAFAXINE HCL) 75 Mg Tab, 150 MG PO ONCE, #5 TAB 08/06/18 Doxycycline Hyclate (DOXYCYCLINE HYCLATE) 100 Mg Tablet, 100 MG PO BID 08/06/18 Discontinued Reported Medications Trazodone Hcl (TRAZODONE HCL) 50 Mg Tablet, 20 MG PO QHS 01/02/18 Escitalopram Oxalate (LEXAPRO) 20 Mg Tablet, 1 TAB PO QDAY, TAB 12/25/17 Discontinued Scripts Ipratropium [place] 0.06% Ns (IPRATROPIUM BROMIDE 0.06% NS) 15 Ml [place], 2 SPRAYS NA BID for 90 Days, #3 BOT 2 Refills Prov:ADELE JERRY MD 02/06/18 Ondansetron (ZOFRAN ODT) 4 Mg Tab.rapdis, 1 TAB.KAVITHA PO TID PRN for NAUSEA/VOMITING, #20 TAB.KAVITHA 0 Refills Prov:ADELE JERRY MD 01/29/18 Dicyclomine Hcl (DICYCLOMINE HCL) 20 Mg Tablet, 1 TAB PO QID, #120 TAB 3 Refills Prov:ADELE JERRY MD 01/07/18 Sucralfate (CARAFATE) 1 Gm Tablet, 1 GM PO QID, #60 TAB 1 Refill If you can't swallow the tablet, grind it up in a small glass and add water to make a slurry. Prov:ADELE JERRY MD 12/26/17 Promethazine HCl (Phenergan) 25 Mg Supp.rect, 1 TAB CA Q8H for Nausea for 7 Days, #20 TAB Prov:LUCILA BIRD DO 12/22/17 Prochlorperazine Maleate (Compazine) 5 Mg Tablet, 1 TAB PO Q8H for Nausea for 7 Days, #20 TAB Prov:LUCILA BIRD DO 12/22/17 Allergies: Coded Allergies: metoclopramide (Verified Allergy, Severe, MENTAL STATUS CHANGES, 08/06/18) Penicillins (Verified Allergy, Unknown, 08/06/18) patient reported morphine (Verified Adverse Reaction, Mild, ITCHING, 08/06/18) Patient History: Chronic sinusitis FATHER MOTHER FH: asthma FATHER Myasthenia gravis MOTHER Hx Smoking: No Smoking Status: Never Smoker Caffeine Intake: Coffee Caffeine/Cups Per Day: one cup per day Hx Alcohol Use: No Hx Substance Use Disorder: No Social Drug Use: Never Review of Systems All Systems Reviewed/Normal: Yes, Except as Noted Constitutional: Fever, Chills Exam Vital Signs Vital Signs Date Time Temp Pulse Resp B/P (MAP) Pulse Ox O2 Delivery O2 Flow Rate FiO2 08/07/18 03:50 97.8 99 20 135/97 (110) 98 Nasal Cannula 2.0 Neuro: No Gross deficits Eyes: PERRLA Cardiovascular: Regular Rate and Rhythm Respiratory: Clear to Auscultation GI: Abd Soft and Non-Tender Musculoskeletal: Other (Neck pain with flexion.) Extremities: No Edema Integumentary: No Cyanosis Medical Decision Making Data Points Result Diagram: 08/06/18212408/06/182124 Assessment and Plan Problems: (1) Aseptic meningitis Assessment & Plan: She did present with fever and neck pain over the last 3 days. She has been on multiple courses of antibiotics over the last several weeks. Her CSF is most consistent with aseptic meningitis, but her previous antibiotic use may alter the results. We have started her on empiric treatment with ceftriaxone and azithromycin. A bacterial antigen panel is negative and cultures are pending. HSV is also pending. It is reported that testing for influenza was negative at the Urgent care. Copies to: DERICK GORE DO ; Venous Thromboembolism Antithrombotics Is Pt On Any Antithrombotics?: No Exam Sepsis Risk: No Definite Risk ADELE STEPHEN DO Aug 07, 2018 04:32
[2018-08-07] MEDS: diphenhydrAMINE 25 MG CAP PO PRN ×3 (05:11→18:23)
[2018-08-07] MEDS: ACETAMINOPHEN 500 MG TAB PO PRN (06:01)
[2018-08-07] MEDS: IBUPROFEN 600 MG TAB PO PRN ×2 (06:01→19:52)
[2018-08-07 07:13] VITALS: BP 125/87
[2018-08-07] MEDS ORDERED: cefTRIAXone 2 GM VIAL IVP SCH (09:00)
[2018-08-07] MEDS: PROMETHAZINE 25 MG/ML 1 ML AMP IVP PRN ×2 (09:46→16:35)
[2018-08-07] MEDS: HYDROmorphone HCL 2 MG/ML SDV IVP PRN ×2 (09:47→20:33)
[2018-08-07] MEDS: VENLAFAXINE XR 75 MG CAPCR PO SCH (09:48)
[2018-08-07] MEDS: ACYCLOVIR IVPB SCH ×2 (09:50→16:35)
[2018-08-07] MEDS: NS 0.9% IVPB SCH ×2 (09:50→16:35)
[2018-08-07 11:21] VITALS: BP 116/75
[2018-08-07 13:28] VITALS: Ht 160 cm; Wt 123.2 kg
[2018-08-07] MEDS: NS(*) 0.9% 1000 ML BAG 1,000 ML IV PRN (13:56)
[2018-08-07] MEDS ORDERED: IPR14R INH (14:32)
[2018-08-07] MEDS ORDERED: VENL150T10 PO (14:32)
[2018-08-07] MEDS ORDERED: MULT-947 PO (14:33)
[2018-08-07] MEDS ORDERED: mirena ×2 (14:35)
[2018-08-07 14:40] VITALS: BP 147/96
[2018-08-07] MEDS: oxyCODONE HCL 5 MG CAP PO PRN (14:44)
[2018-08-07] MEDS ORDERED: SUMAtriptan SUCC 6MG/0.5ML VL SUBQ ONE (16:20)
[2018-08-07 19:53] VITALS: BP 134/90
[2018-08-08] VITALS (8 sets, daily range): BP systolic 122–155; BP diastolic 78–110
[2018-08-08] MEDS: PROMETHAZINE 25 MG/ML 1 ML AMP IVP PRN ×3 (00:28→18:03)
[2018-08-08] MEDS: NS 0.9% IVPB SCH ×3 (00:28→17:15)
[2018-08-08] MEDS: ACYCLOVIR IVPB SCH ×3 (00:28→17:15)
[2018-08-08] MEDS: diphenhydrAMINE 25 MG CAP PO PRN ×4 (01:56→22:02)
[2018-08-08] MEDS: ACETAMINOPHEN 500 MG TAB PO PRN ×2 (01:56→22:02)
[2018-08-08] MEDS: HYDROmorphone HCL 2 MG/ML SDV IVP PRN ×3 (03:20→19:26)
[2018-08-08] MEDS: NS(*) 0.9% 1000 ML BAG 1,000 ML IV PRN (05:23)
[2018-08-08 05:58] LABS: PLATELET COUNT, AUTOMATED 318 K/uL (150-450)
--- NOTE | 2018-08-08 08:21 | Hospitalist Progress Note ---
Subjective Progress Notes Subjective She continues to have headache, which now seems to be worse than previous. Located cervical/occipital and into bilateral frontal areas. No fever. Some nausea. Worse when sitting up or when out of bed. She has had migraine headaches in past, which are usually left sided with photophobia. Physical Exam Vital Signs Date Time Temp Pulse Resp B/P (MAP) Pulse Ox O2 Delivery O2 Flow Rate FiO2 08/08/18 06:55 97.7 97 18 142/99 (113) 97 Nasal Cannula 1.5 Intake and Output 08/08/18 07:00 Intake Total 2413.6 ml Output Total 410 ml Balance 2003.6 ml Intake Oral 200 ml IV Total 2213.6 ml Output Urine Total 410 ml # Voids 1 General Appearance: Alert, Awake, Other (she prefers to keep eyes covered) Neuro: No Gross deficits Cardiovascular: Regular Rate and Rhythm Respiratory: Clear to Auscultation GI: Soft and Non-Tender Extremities: Warm, Edema Result Diagram: 08/08/1851208/08/18512 Assessment and Plan Problems: (1) Aseptic meningitis Assessment & Plan: She did present with fever and neck pain over the last 3 days. She has been on multiple courses of antibiotics over the last several weeks. Her CSF is most consistent with aseptic meningitis or headache associated with viral syndrome. We initially started her on empiric treatment with IV ceftriaxone and azithromycin. Bacterial antigen panel and CSF culture are negative. HSV is still pending. She does continue on acyclovir until HSV PCR is back and negative. It is reported that testing for influenza was negative at the Urgent care. It now sounds like she most likely has a dural leak following her LP. (2) Headache Status: Acute Assessment & Plan: It now sounds like she probably has a dural leak following her LP. Will discuss possible blood patch with anesthesia. Will continue IV fluids. She has not been able to take much in the way of fluids due to nausea. Exam Sepsis Risk: No Definite Risk AYUSH BARNES MD Aug 08, 2018 08:21
[2018-08-08] MEDS: VENLAFAXINE XR 75 MG CAPCR PO SCH (09:40)
--- NOTE | 2018-08-08 09:53 | Blood Patch Procedure Note ---
History of Present Illness Diagnosis: Post Dural Puncture COBURN Anesthesia Start Date: Aug 08, 2018 Anesthesia Start Time: 08:30 Vital Signs: Vital Signs Date Time Temp Pulse Resp B/P (MAP) Pulse Ox O2 Delivery O2 Flow Rate FiO2 08/08/18 09:32 97.7 92 18 126/85 (99) 96 Nasal Cannula 1.5 Pain Ratin Result Diagram: 08/08/1851208/08/18512 Height (Inches): 63.00 Weight (Pounds): 271 BMI (kg/m2): 46 Past Medical History Medical History: obesity, other (possible viral infection) Previous Anesthesia: spinal (C/section x2) Hx Anesthesia Reactions: No Hx Family Anesthesia Reaction: No Home Meds Reported Medications [mirena] No Conflict Check 08/07/18 Multivit With Calcium,Iron,Min (WOMEN'S DAILY FORMULA) 1 Each Tablet, 1 EACH PO QDAY 08/07/18 Venlafaxine Hcl (VENLAFAXINE HCL ER) 150 Mg Tab.er.24, 150 MG PO QDAY 08/07/18 Ipratropium [place] 17 Mcg/Act (ATROVENT HFA 17 MCG/ACT) 12.9 Gm Inh, 12.9 GM INH 1-2XD PRN for prn, INH 08/07/18 Azithromycin (ZITHROMAX) 250 Mg Tablet, 1 TAB PO QDAY, TAB 08/06/18 Doxycycline Hyclate (DOXYCYCLINE HYCLATE) 100 Mg Tablet, 100 MG PO BID 08/06/18 Discontinued Reported Medications [mirena] No Conflict Check 08/07/18 Venlafaxine Hcl (VENLAFAXINE HCL) 75 Mg Tab, 150 MG PO ONCE, #5 TAB 08/06/18 Trazodone Hcl (TRAZODONE HCL) 50 Mg Tablet, 20 MG PO QHS 01/02/18 Escitalopram Oxalate (LEXAPRO) 20 Mg Tablet, 1 TAB PO QDAY, TAB 12/25/17 Discontinued Scripts Ipratropium [place] 0.06% Ns (IPRATROPIUM BROMIDE 0.06% NS) 15 Ml [place], 2 SPRAYS NA BID for 90 Days, #3 BOT 2 Refills Prov:ADELE JERRY MD 02/06/18 Ondansetron (ZOFRAN ODT) 4 Mg Tab.rapdis, 1 TAB.KAVITHA PO TID PRN for NAUSEA /VOMITING, #20 TAB.KAVITHA 0 Refills Prov:ADELE JERRY MD 01/29/18 Dicyclomine Hcl (DICYCLOMINE HCL) 20 Mg Tablet, 1 TAB PO QID, #120 TAB 3 Refills Prov:ADELE JERRY MD 01/07/18 Sucralfate (CARAFATE) 1 Gm Tablet, 1 GM PO QID, #60 TAB 1 Refill If you can't swallow the tablet, grind it up in a small glass and add water to make a slurry. Prov:ADELE JERRY MD 12/26/17 Promethazine HCl (Phenergan) 25 Mg Supp.rect, 1 TAB ID Q8H for Nausea for 7 Days, #20 TAB Prov:LUCILA BIRD DO 12/22/17 Prochlorperazine Maleate (Compazine) 5 Mg Tablet, 1 TAB PO Q8H for Nausea for 7 Days, #20 TAB Prov:LUCILA BIRD S 12/22/17 Allergies: Coded Allergies: metoclopramide (Verified Allergy, Severe, MENTAL STATUS CHANGES, 08/06/18) Penicillins (Verified Allergy, Unknown, 08/07/18) patient reported. pt has taken cephalosporins without issue. (08/07/18, Bon[facility] Machado [facility]) as reported by Caitlin Quinonez RN per Dr. 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 Has vision changes, frontal COBURN, Nausea & Vomiting), other Eyes ROS: other (glasses) Pulmonary: No asthma, No smoker (pks/day/yrs) Airway Class: lll Cardiovascular ROS: No edema, No arrhythmia GI ROS: clear liquids Last Solids Date: Aug 07, 2018 ROS: No Herpes, No STD(s), No Liver Disease, No Renal Disease Endocrine ROS: No diabetes, No gestational diabetes, No thyroid disorder, No other Musculoskeletal ROS: low back pain (post LP in ER); No low back injury, No scoliosis, No other ASA Classification: 3 Assessment and Plan Anesthesia Plan: Blood Patch Anesthesia Stop Day: Aug 08, 2018 Anesthesia Stop Time: 10:30 Anesthesia Blood Patch Note Anesthesia Blood Patch Note Anesthesia Positioning: Patient Sitting Anesthesia Prep: Chlorhexidine Interspace: L 3-4 Local Anesthetic: 1% Lidocaine, 25 Gauge Needle Amount Local - cc's: 3 Anesthesia Needle: 17g Touhy/Schliff Anesthesia Attempts: 1 Loss of Resistance: Air Depth of LOS (cm): 6 Cerebral Spinal Fluid: No Blood Draw for Blood Patch by: Sterile Technique, 20g Cathalon, Right Antecubital Blood Drawn by (RN): Sangita Dominguez RN Amount Drawn: 20 Amount Injected: 20 Post Procedure Position: Supine X 30 minutes (60 min), Then HOB inc over 30 min Blood Patch Dressing: Other (4x4 and RN agrees to remove this afternoon) Anesthesia Tray: Lot Number ([id number]), Expiration Date (2019-06-21), R eference Number ([id number]) Comment: New IV started in Rt AC, able to withdraw blood easily. Pt. then assisted to BR, Nausea and Emesis upon returning. She was able to sit on side of bed with 2 pillows on bedside table, washcloth over her eye to decrease light. She tolerated the blood patch extremely well. Assisted to then lay supine with small pillow under knees. Will remain for 1 hr and then start elevating HOB slowly. TOMMIE PADILLA CRNA Aug 08, 2018 09:53
[2018-08-08] MEDS: IBUPROFEN 600 MG TAB PO PRN (14:17)
[2018-08-08] MEDS: oxyCODONE HCL 5 MG CAP PO PRN (14:17)
[2018-08-09] MEDS: PROMETHAZINE 25 MG/ML 1 ML AMP IVP PRN ×2 (00:44→07:14)
[2018-08-09] MEDS: NS 0.9% IVPB SCH (00:48)
[2018-08-09] MEDS: ACYCLOVIR IVPB SCH (00:48)
[2018-08-09] MEDS: HYDROmorphone HCL 2 MG/ML SDV IVP PRN ×2 (02:02→05:40)
[2018-08-09] MEDS: ACETAMINOPHEN 500 MG TAB PO PRN ×2 (04:09→10:26)
[2018-08-09] MEDS: diphenhydrAMINE 25 MG CAP PO PRN ×2 (04:10→10:26)
[2018-08-09 04:19] VITALS: BP 151/105
[2018-08-09] MEDS: NS(*) 0.9% 1000 ML BAG 1,000 ML IV PRN (05:04)
[2018-08-09 06:43] LABS: PLATELET COUNT, AUTOMATED 300 K/uL (150-450)
[2018-08-09 06:50] VITALS: BP 148/99
[2018-08-09] MEDS ORDERED: ACYCLOVIR 200 MG CAP PO SCH (09:00)
[2018-08-09] MEDS: VENLAFAXINE XR 75 MG CAPCR PO SCH (09:11)
[2018-08-09] MEDS ORDERED: PROM-110 PO (09:31)
[2018-08-09] MEDS ORDERED: ACYC-1 PO (09:31)
[2018-08-09] MEDS ORDERED: PER PO (09:31)
--- NOTE | 2018-08-09 09:35 | Hospitalist Depart ---
Discharge Summary Reason for Hosp/Final Diag: (1) Aseptic meningitis Hospital Course & Plan: She did present with fever and neck pain. She has been on multiple courses of antibiotics over the last several weeks. Her CSF was most consistent with aseptic meningitis. We initially started her on empiric treatment with IV ceftriaxone and acyclovir. Bacterial antigen panel and CSF culture were negative. HSV is still pending. The ceftriaxone has been discontinued and she has been converted to oral dosing for the acyclovir. She has been provided with a 10 day course of treatment, but this can be stopped early if her HSV testing returns negative. (2) Headache Status: Acute Hospital Course & Plan: She did develop a dural leak as a complication of the lumbar puncture. A spinal patch was placed by anesthesia. She has been provided with pain and nausea medications. Departure Latest Vital Signs Vital Signs 08/09/18 08/09/18 06:50 07:46 Temp 98.4 Pulse 106 Resp 12 B/P (MAP) 148/99 (115) Pulse Ox 94 O2 Delivery Nasal Cannula O2 Flow Rate 2.0 Weight (Pounds): 271 Weight (Ounces): 8.0 Result Diagram: 08/09/1860508/09/18605 Condition: Improved Discharge: Home, Self Care Discharge Instructions Home Meds Active Scripts Oxycodone/Acetaminophen (OXYCODONE/ACETAMINOPHEN 5MG/325 MG) 5 Mg/325 Mg Tab, 1 TAB PO Q4H PRN for PAIN, #42 TAB Prov:ADELE STEPHEN DO 08/09/18 Promethazine Hcl (PROMETHAZINE HCL) 25 Mg Tablet, 25 MG PO Q6H PRN for NAUSEA/VOMITING, #10 TAB Prov:ADELE STEPHEN DO 08/09/18 Acyclovir (ACYCLOVIR) 200 Mg Capsule, 400 MG PO TID, #42 CAPSULE Prov:ADELE STEPHEN DO 08/09/18 Reported Medications Multivit With Calcium,Iron,Min (WOMEN'S DAILY FORMULA) 1 Each Tablet, 1 EACH PO QDAY 08/07/18 Venlafaxine Hcl (VENLAFAXINE HCL ER) 150 Mg Tab.er.24, 150 MG PO QDAY 08/07/18 Ipratropium [place] 17 Mcg/Act (ATROVENT HFA 17 MCG/ACT) 12.9 Gm Inh, 12.9 GM INH 1-2XD PRN for prn, INH 1/16/19 Discontinued Reported Medications [mirena] No Conflict Check 08/07/18 Azithromycin (ZITHROMAX) 250 Mg Tablet, 1 TAB PO QDAY, TAB 08/06/18 Doxycycline Hyclate (DOXYCYCLINE HYCLATE) 100 Mg Tablet, 100 MG PO BID 08/06/18 [mirena] No Conflict Check 08/07/18 Venlafaxine Hcl (VENLAFAXINE HCL) 75 Mg Tab, 150 MG PO ONCE, #5 TAB 08/06/18 Trazodone Hcl (TRAZODONE HCL) 50 Mg Tablet, 20 MG PO QHS 01/02/18 Escitalopram Oxalate (LEXAPRO) 20 Mg Tablet, 1 TAB PO QDAY, TAB 12/25/17 Discontinued Scripts Ipratropium [place] 0.06% Ns (IPRATROPIUM BROMIDE 0.06% NS) 15 Ml [place], 2 SPRAYS NA BID for 90 Days, #3 BOT 2 Refills Prov:ADELE JERRY MD 02/06/18 Ondansetron (ZOFRAN ODT) 4 Mg Tab.rapdis, 1 TAB.KAVITHA PO TID PRN for NAUSEA/VOMITING, #20 TAB.KAVITHA 0 Refills Prov:ADELE JERRY MD 01/29/18 Dicyclomine Hcl (DICYCLOMINE HCL) 20 Mg Tablet, 1 TAB PO QID, #120 TAB 3 Refills Prov:ADELE JERRY MD 01/07/18 Sucralfate (CARAFATE) 1 Gm Tablet, 1 GM PO QID, #60 TAB 1 Refill If you can't swallow the tablet, grind it up in a small glass and add water to make a slurry. Prov:ADELE JERRY MD 12/26/17 Promethazine HCl (Phenergan) 25 Mg Supp.rect, 1 TAB PA Q8H for Nausea for 7 Days, #20 TAB Prov:LUCILA BIRD DO 12/22/17 Prochlorperazine Maleate (Compazine) 5 Mg Tablet, 1 TAB PO Q8H for Nausea for 7 Days, #20 TAB Prov:LUCILA BIRD DO 12/22/17 Diet: Regular Activity: As Tolerated Copies to: DERICK GORE DO ; Venous Thromboembolism Antithrombotics Is Pt On Any Antithrombotics?: No ADELE STEPHEN DO Aug 09, 2018 09:35
--- NOTE | 2018-08-09 11:01 | Anesthesia Progress Note ---
Progress/Maintenance Anesthesia Note Date: Aug 09, 2018 Anesthesia Note Time: 10:45 Pain Intensity: 4 Motor Level: Bending Knees-Bilateral Assessment and Plan Assessment Pt. is sitting on couch, drinking large amounts of liquids. Denies any nausea. Planning discharge today. She states she still has a headache, frontal and with intensifying with light. She states it is better than yesterday, but still present. She states she has back pain starting from her lowest LP sites and radiates up into her neck. Quarter size bruise noted at Epidural puncture site. Instructed pt. to have MSO observe the puncture site for any redness or swelling and to report to physician if it occurs. Instructed to not lift or strain. TOMMIE PADILLA CRNA Aug 09, 2018 11:01
== END 2018-08-09 11:50 | disposition home or self-care (01) | DRG 98 ==
LOC: ER 21:43 → MED 08-07 03:20
PROVIDERS: ADMIT Family Medicine; ATTEND Family Medicine
PROC: 3E0R3GC Introduction of Other Therapeutic Substance into Spinal Canal, Percutaneous Approach (ICD-10-PCS; principal; 2018-08-08)
DX: G03.0 Nonpyogenic meningitis (principal); G97.82 Other postprocedural complications and disorders of nervous system; G97.41 Accidental puncture or laceration of dura during a procedure; K42.9 Umbilical hernia without obstruction or gangrene; F41.9 Anxiety disorder, unspecified; Y83.8 Other surgical procedures as the cause of abnormal reaction of the patient, or of later complication, without mention of misadventure at the time of the procedure; Y75.3 Surgical instruments, materials and neurological devices (including sutures) associated with adverse incidents; Z88.0 Allergy status to penicillin; Z88.5 Allergy status to narcotic agent; Z90.49 Acquired absence of other specified parts of digestive tract
CPT/HCPCS: 36415; 70450; 81001; 82040; 82247; 82310; 82374; 82435; 82565; 82945; 82947; 83605; 84075; 84132; 84155; 84157; 84295; 84450; 84460; 84520; 84703; 85025; 85651; 86140; 87040; 87070; 87088; 87205; 87529; 87899; 89050; 96361; 96374; 96375; 96376; 99285; J0133; J1170; J1200; J2270; J2405; J2550; J3030; J7030; J7050; Q0163

== ENCOUNTER → 2018-08-06 | Outpatient (REF) | payer BC ==
[2016-12-05 16:45] VITALS: BMI 46.9
[~2018-08-06] MED LIST changes: +AZIT-1 PO; +DOXY-179 PO; -HYDR-4309 PO; +HYDR-653 PO; +IPR14R INH; -METR-160 PO; +METR500T15 PO; +MULT-947 PO; +VENL150T10 PO; +VENL75TA12 PO; +mirena
[2018-08-06 14:03] LABS: PLATELET COUNT, AUTOMATED 376 K/uL (150-450)
== END ==
PROVIDERS: ATTEND Nurse Practitioner Family
DX: R11.10 Vomiting, unspecified (principal)
CPT/HCPCS: 82040; 82247; 82310; 82374; 82435; 82565; 82947; 84075; 84132; 84155; 84295; 84450; 84460; 84520; 85025